=== PATIENT | male | born 1940 | race Two or more races ===

== ENCOUNTER 2017-12-29 10:08 | Inpatient (IN) ==
[2017-12-29] MEDS: Sod Chloride 0.9% Inj 1,000 ML IV.CONT SCH (10:11)
[2017-12-29 10:29] LABS: Baso % (Auto) 0.3 % (0.0-2.0); Eos # (Auto) 0.1 th/mm3 (0.0-0.4); Eos % (Auto) 1.4 % (0.0-4.0); Hematocrit 40.6 % (39.0-51.0); Hemoglobin 13.7 gm/dL (13.0-17.0); Lymph # (Auto) 1.3 th/mm3 (1.0-4.8); Mean Corpuscular HGB Conc 33.8 % (32.0-36.0); Mean Corpuscular Hemoglobin 32.3 pg (27.0-34.0); Mean Corpuscular Volume 95.5 fL (80.0-100.0); Mean Platelet Volume 8.3 fL (7.0-11.0); Mono # (Auto) 0.8 th/mm3 (0.0-0.9); Mono % (Auto) 10.8 % (0.0-8.0); Neut # (Auto) 5.1 th/mm3 (1.8-7.7); Neut % (Auto) 69.5 % (16.0-70.0); Platelet Count 137 th/mm3 (150-450); Red Blood Count 4.25 mil/mm3 (4.50-5.90); Red Cell Distribution Width 14.2 % (11.6-17.2); White Blood Count 7.3 th/mm3 (4.0-11.0)
--- NOTE | 2017-12-29 10:30 | ED ---
HPI General Chief Complaint: Stroke Alert Stated Complaint: Stroke Alert Time Seen by Provider: 12/29/17 10:15 Source: patient and EMS Mode of arrival: EMS Limitations: altered mental status History of Present Illness HPI Narrative: 78-year-old male was brought in by EMS for altered mental status , aphasia, left sided weakness. Family member called EMS this morning. Family member reported to EMS that patient is not speaking and seems to have left- sided weakness. Family member unable to provide approximately time the symptoms started. EMS reported was called to the home yesterday for hypotension. Patient refused treatment yesterday. Patient is unable to provide any information. No past medical history available. No list of medication available. No allergy available. Onset (ago): hour(s) Timing confirmed by: family member Location: speech, left arm and left leg History of same: No Severity: moderate Quality: weak Relieving factors: none Exacerbating factors: none Context: other (Unknown time of onset) Associated symptoms: weakness Treatments Prior to Arrival: oxygen Related Data Home Medications Medication Instructions Recorded Confirmed amlodipine-benazepril 1 cap PO DAILY 12/29/17 12/29/17 citalopram 20 mg PO DAILY 12/29/17 12/29/17 tamsulosin 0.4 mg PO DAILY 12/29/17 12/29/17 Previous Rx's Medication Instructions Recorded aspirin 325 mg PO DAILY tab 12/31/17 atorvastatin 40 mg PO DAILY #30 tab 12/31/17 Allergies Allergy/AdvReac Type Severity Reaction Status Date / Time No Allergy Information Allergy Verified 12/29/17 10:16 Available Review of Systems ROS Unobtainable ROS Unobtainable: unobtainable due to mental condition PMFSH History History Provided By: Family Member and Roller Skater / EMT Social History Social History Substance History: Unable to Obtain Smoking Status: Unknown if ever smoked How Often Do You Have a Drink Containing Alcohol: Unable to Obtain Recent Travel in [place] within the Last 8 Weeks: No Recent Out of Country Travel within the Last 8 Weeks: No Exam Narrative Exam Narrative: GENERAL: Well-nourished, well-developed patient. SKIN: Focused skin assessment warm/dry. HEAD: Normocephalic. EYES: No scleral icterus. No injection or drainage. Pupils 1.5 mm equal reactive NECK: Supple, trachea midline. No JVD or lymphadenopathy. CARDIOVASCULAR: Regular rate and rhythm without murmurs, gallops, or rubs. RESPIRATORY: Breath sounds equal bilaterally. No accessory muscle use. GASTROINTESTINAL: Abdomen soft, non-tender, nondistended. MUSCULOSKELETAL: No cyanosis, or edema. BACK: Nontender without obvious deformity. No CVA tenderness. Neurologic exam: Patient open eyes to command. Patient moves extremities to command. Patient seemed to have weakness on the left arm and left leg. Patient can move left arm left leg however seem to be weaker than the right side. No obvious facial drooping. Patient's aphasic. Deep tendon reflexes +1 and equal. Negative Babinski. Course Initial Documented Vital Signs Pulse Oximetry 100 12/29/17 10:10 Last Documented Vital Signs Temperature 97.9 F 01/02/18 16:00 Pulse Rate 72 01/02/18 16:00 Respiratory Rate 17 01/02/18 16:00 Blood Pressure 155/72 H 01/02/18 16:00 Pulse Oximetry 98 01/02/18 16:00 NIH Stroke Scale NIH Stroke Scale Level of Consciousness: 1-Drowsy Orientation Questions: 1-One task correct Responds to Commands: 1-One task correct Gaze Eye Movement: 0-Horizontal movement WNL Visual Simpson: 0-No visual field defect Facial Movement: 2-Partial facial palsy Motor Functions Arm LEFT: 1-Drift before 10 seconds Motor Functions Arm RIGHT: 0-No drift Motor Functions Leg LEFT: 1-Drift before 5 seconds Motor Functions Leg RIGHT: 0-No drift Limb Ataxia: 0-No ataxia Sensory Loss: 0-No sensory loss Best Language: 1-Mild aphasia Articulation: 1-Mild dysarthia Extinction or Inattention Sensory: 0-Absent Total: 9 Medical Decision Making [facility] Narrative Medical decision making narrative: 78-year-old male was brought in with symptoms of aphasia, left-sided weakness. Unknown time of onset. Stroke alert was called. Normal saline solution 70 cc an hour. O2 2 L nasal cannula. Head of bed flat. CT scan of the brain show significant edema throughout the basal ganglia on the right side along with the right medial lobe and right temporal lobe. I spoke with Dr. Díaz, neurologist. Patient is not a candidate for TPA. Medical Screen Exam Complete: Yes Emergency Medical Condition: Yes Differential Diagnosis Differential Diagnosis: Differential diagnosis including TIA, CVA, electrolyte imbalance, dehydration, sepsis. Lab Data Result diagrams: 01/02/18 04:54 01/02/18 04:54 Lab Results 12/29/17 12/29/17 12/29/17 Range/Units 10:11 10:11 10:11 WBC 7.3 (4.0-11.0) th/mm3 Corrected WBC (4.0-11.0) th/mm3 RBC 4.25 L (4.50-5.90) mil/mm3 Hgb 13.7 (13.0-17.0) gm/dL POC Hgb (Calc) 13.6 (13.0-17.0) g/dL Hct 40.6 (39.0-51.0) % POC Hct 40.0 (39-51.0) % MCV 95.5 (80.0-100.0) fL MCH 32.3 (27.0-34.0) pg MCHC 33.8 (32.0-36.0) % RDW 14.2 (11.6-17.2) % Plt Count 137 L (150-450) th/mm3 MPV 8.3 (7.0-11.0) fL Prelim Diff (Auto) Neut % (Auto) 69.5 (16.0-70.0) % Lymph % (Auto) 18.0 (9.0-44.0) % [place] % (Auto) 10.8 H (0.0-8.0) % Eos % (Auto) 1.4 (0.0-4.0) % Baso % (Auto) 0.3 (0.0-2.0) % Neut # (Auto) 5.1 (1.8-7.7) th/mm3 Lymph # (Auto) 1.3 (1.0-4.8) th/mm3 [place] # (Auto) 0.8 (0.0-0.9) th/mm3 Eos # (Auto) 0.1 (0.0-0.4) th/mm3 Baso # (Auto) 0.0 (0.0-0.2) th/mm3 WBC Differential . Seg Neuts % (Manual) (16-70) % Lymphocytes % (Manual) (9-44) % Monocytes % (Manual) (0-8) % Eosinophils % (Manual) (0-4) % Abs Neuts (Manual) (1.8-7.7) th/mm3 Differential Comment Auto diff final Platelet Estimate (Normal) Platelet Morphology (Normal) PT 10.2 (9.8-11.6) sec INR 1.0 Ratio APTT 23.8 L (24.3-30.1) sec Fibrinogen 392 H (227-377) mg/dL POC Sodium 140 (137-144) mmol/L Sodium 141 (136-145) meq/L POC Potassium 3.9 (3.6-5.0) mmol/L Potassium 4.0 (3.5-5.1) meq/L POC Chloride 106 (102-111) mmol/L Chloride 109 H (98-107) meq/L Carbon Dioxide 23.8 (21.0-32.0) meq/L Anion Gap 8 (5-15) meq/L POC BUN 27 H (5-21) mg/dL BUN 25 H (7-18) mg/dL Creatinine 1.05 (0.60-1.30) mg/dL POC Creatinine 1.0 (0.6-1.3) mg/dL Estimated GFR 61 L (>89) mL/min POC Glucose 109 (68-110) mg/dL Random Glucose 106 (74-106) mg/dL Calcium 8.8 (8.5-10.1) mg/dL Prot Corrected Calcium Phosphorus (2.5-4.9) mg/dL Magnesium (1.5-2.5) mg/dL Total Bilirubin 0.3 (0.2-1.0) mg/dL AST 18 (15-37) U/L ALT 14 (12-78) U/L Alkaline Phosphatase 62 (45-117) U/L Total Creatine Kinase 70 (39-308) U/L Troponin I Less than 0.02 L (0.02-0.05) ng/mL Total Protein 7.2 (6.4-8.2) g/dL Albumin 3.6 (3.4-5.0) g/dL Triglycerides (42-150) mg/dL Cholesterol (120-200) mg/dL LDL Cholesterol, Calc (0-99) mg/dL HDL Cholesterol (40.0-60.0) mg/dL Cholesterol/HDL Ratio Ratio Vitamin B12 (193-986) pg/mL TSH (0.358-3.740) uIU/mL Nasal Screen MRSA (PCR) (Negative) 12/29/17 12/29/17 12/30/17 Range/Units 10:11 18:40 04:37 WBC 6.1 (4.0-11.0) th/mm3 Corrected WBC (4.0-11.0) th/mm3 RBC 4.12 L (4.50-5.90) mil/mm3 Hgb 13.1 (13.0-17.0) gm/dL POC Hgb (Calc) (13.0-17.0) g/dL Hct 38.9 L (39.0-51.0) % POC Hct (39-51.0) % MCV 94.3 (80.0-100.0) fL MCH 31.9 (27.0-34.0) pg MCHC 33.8 (32.0-36.0) % RDW 13.8 (11.6-17.2) % Plt Count 138 L (150-450) th/mm3 MPV 8.4 (7.0-11.0) fL Prelim Diff (Auto) Neut % (Auto) 55.6 (16.0-70.0) % Lymph % (Auto) 31.7 (9.0-44.0) % [place] % (Auto) 8.3 H (0.0-8.0) % Eos % (Auto) 3.9 (0.0-4.0) % Baso % (Auto) 0.5 (0.0-2.0) % Neut # (Auto) 3.4 (1.8-7.7) th/mm3 Lymph # (Auto) 1.9 (1.0-4.8) th/mm3 [place] # (Auto) 0.5 (0.0-0.9) th/mm3 Eos # (Auto) 0.2 (0.0-0.4) th/mm3 Baso # (Auto) 0.0 (0.0-0.2) th/mm3 WBC Differential . Seg Neuts % (Manual) (16-70) % Lymphocytes % (Manual) (9-44) % Monocytes % (Manual) (0-8) % Eosinophils % (Manual) (0-4) % Abs Neuts (Manual) (1.8-7.7) th/mm3 Differential Comment Auto diff final Platelet Estimate (Normal) Platelet Morphology (Normal) PT (9.8-11.6) sec INR Ratio APTT (24.3-30.1) sec Fibrinogen (227-377) mg/dL POC Sodium (137-144) mmol/L Sodium Cancelled (136-145) meq/L POC Potassium (3.6-5.0) mmol/L Potassium Cancelled (3.5-5.1) meq/L POC Chloride (102-111) mmol/L Chloride Cancelled (98-107) meq/L Carbon Dioxide Cancelled (21.0-32.0) meq/L Anion Gap Cancelled (5-15) meq/L POC BUN (5-21) mg/dL BUN Cancelled (7-18) mg/dL Creatinine Cancelled (0.60-1.30) mg/dL POC Creatinine (0.6-1.3) mg/dL Estimated GFR Cancelled (>89) mL/min POC Glucose (68-110) mg/dL Random Glucose Cancelled (74-106) mg/dL Calcium Cancelled (8.5-10.1) mg/dL Prot Corrected Calcium Cancelled Phosphorus (2.5-4.9) mg/dL Magnesium (1.5-2.5) mg/dL Total Bilirubin Cancelled (0.2-1.0) mg/dL AST Cancelled (15-37) U/L ALT Cancelled (12-78) U/L Alkaline Phosphatase Cancelled (45-117) U/L Total Creatine Kinase (39-308) U/L Troponin I (0.02-0.05) ng/mL Total Protein Cancelled (6.4-8.2) g/dL Albumin Cancelled (3.4-5.0) g/dL Triglycerides (42-150) mg/dL Cholesterol (120-200) mg/dL LDL Cholesterol, Calc (0-99) mg/dL HDL Cholesterol (40.0-60.0) mg/dL Cholesterol/HDL Ratio Ratio Vitamin B12 (193-986) pg/mL TSH (0.358-3.740) uIU/mL Nasal Screen MRSA (PCR) Not detected (Negative) 12/30/17 12/30/17 12/30/17 Range/Units 04:37 04:37 12:56 WBC (4.0-11.0) th/mm3 Corrected WBC (4.0-11.0) th/mm3 RBC (4.50-5.90) mil/mm3 Hgb (13.0-17.0) gm/dL POC Hgb (Calc) (13.0-17.0) g/dL Hct (39.0-51.0) % POC Hct (39-51.0) % MCV (80.0-100.0) fL MCH (27.0-34.0) pg MCHC (32.0-36.0) % RDW (11.6-17.2) % Plt Count (150-450) th/mm3 MPV (7.0-11.0) fL Prelim Diff (Auto) Neut % (Auto) (16.0-70.0) % Lymph % (Auto) (9.0-44.0) % [place] % (Auto) (0.0-8.0) % Eos % (Auto) (0.0-4.0) % Baso % (Auto) (0.0-2.0) % Neut # (Auto) (1.8-7.7) th/mm3 Lymph # (Auto) (1.0-4.8) th/mm3 [place] # (Auto) (0.0-0.9) th/mm3 Eos # (Auto) (0.0-0.4) th/mm3 Baso # (Auto) (0.0-0.2) th/mm3 WBC Differential Seg Neuts % (Manual) (16-70) % Lymphocytes % (Manual) (9-44) % Monocytes % (Manual) (0-8) % Eosinophils % (Manual) (0-4) % Abs Neuts (Manual) (1.8-7.7) th/mm3 Differential Comment Platelet Estimate (Normal) Platelet Morphology (Normal) PT 10.5 (9.8-11.6) sec INR 1.0 Ratio APTT 25.1 (24.3-30.1) sec Fibrinogen (227-377) mg/dL POC Sodium (137-144) mmol/L Sodium (136-145) meq/L POC Potassium (3.6-5.0) mmol/L Potassium (3.5-5.1) meq/L POC Chloride (102-111) mmol/L Chloride (98-107) meq/L Carbon Dioxide (21.0-32.0) meq/L Anion Gap (5-15) meq/L POC BUN (5-21) mg/dL BUN (7-18) mg/dL Creatinine (0.60-1.30) mg/dL POC Creatinine (0.6-1.3) mg/dL Estimated GFR (>89) mL/min POC Glucose (68-110) mg/dL Random Glucose (74-106) mg/dL Calcium (8.5-10.1) mg/dL Prot Corrected Calcium Phosphorus 2.5 (2.5-4.9) mg/dL Magnesium 1.8 (1.5-2.5) mg/dL Total Bilirubin (0.2-1.0) mg/dL AST (15-37) U/L ALT (12-78) U/L Alkaline Phosphatase (45-117) U/L Total Creatine Kinase (39-308) U/L Troponin I (0.02-0.05) ng/mL Total Protein (6.4-8.2) g/dL Albumin (3.4-5.0) g/dL Triglycerides 83 (42-150) mg/dL Cholesterol 178 (120-200) mg/dL LDL Cholesterol, Calc 119 H (0-99) mg/dL HDL Cholesterol 42.4 (40.0-60.0) mg/dL Cholesterol/HDL Ratio 4.19 Ratio Vitamin B12 613 (193-986) pg/mL TSH 0.815 (0.358-3.740) uIU/mL Nasal Screen MRSA (PCR) (Negative) 12/31/17 12/31/17 01/01/18 Range/Units 04:16 04:16 06:15 WBC 6.9 5.4 (4.0-11.0) th/mm3 Corrected WBC 7.5 (4.0-11.0) th/mm3 RBC 4.45 L 4.60 (4.50-5.90) mil/mm3 Hgb 14.1 14.7 (13.0-17.0) gm/dL POC Hgb (Calc) (13.0-17.0) g/dL Hct 43.2 43.1 (39.0-51.0) % POC Hct (39-51.0) % MCV 97.2 93.7 D (80.0-100.0) fL MCH 31.6 32.0 (27.0-34.0) pg MCHC 32.5 34.2 (32.0-36.0) % RDW 13.9 13.7 (11.6-17.2) % Plt Count 145 L 139 L (150-450) th/mm3 MPV 8.5 8.2 (7.0-11.0) fL Prelim Diff (Auto) Manual diff required Neut % (Auto) 45.4 (16.0-70.0) % Lymph % (Auto) 39.1 (9.0-44.0) % [place] % (Auto) 9.9 H (0.0-8.0) % Eos % (Auto) 5.0 H (0.0-4.0) % Baso % (Auto) 0.6 (0.0-2.0) % Neut # (Auto) 2.5 (1.8-7.7) th/mm3 Lymph # (Auto) 2.1 (1.0-4.8) th/mm3 [place] # (Auto) 0.5 (0.0-0.9) th/mm3 Eos # (Auto) 0.3 (0.0-0.4) th/mm3 Baso # (Auto) 0.0 (0.0-0.2) th/mm3 WBC Differential Manual diff final . Seg Neuts % (Manual) 38 (16-70) % Lymphocytes % (Manual) 54 H (9-44) % Monocytes % (Manual) 6 (0-8) % Eosinophils % (Manual) 2 (0-4) % Abs Neuts (Manual) 2.9 (1.8-7.7) th/mm3 Differential Comment . Auto diff final Platelet Estimate Low L (Normal) Platelet Morphology Normal (Normal) PT (9.8-11.6) sec INR Ratio APTT (24.3-30.1) sec Fibrinogen (227-377) mg/dL POC Sodium (137-144) mmol/L Sodium 142 (136-145) meq/L POC Potassium (3.6-5.0) mmol/L Potassium 3.9 (3.5-5.1) meq/L POC Chloride (102-111) mmol/L Chloride 110 H (98-107) meq/L Carbon Dioxide 23.2 (21.0-32.0) meq/L Anion Gap 9 (5-15) meq/L POC BUN (5-21) mg/dL BUN 17 (7-18) mg/dL Creatinine 0.87 (0.60-1.30) mg/dL POC Creatinine (0.6-1.3) mg/dL Estimated GFR 76 L (>89) mL/min POC Glucose (68-110) mg/dL Random Glucose 79 (74-106) mg/dL Calcium 8.3 L (8.5-10.1) mg/dL Prot Corrected Calcium Phosphorus (2.5-4.9) mg/dL Magnesium (1.5-2.5) mg/dL Total Bilirubin 0.5 (0.2-1.0) mg/dL AST 14 L (15-37) U/L ALT 11 L (12-78) U/L Alkaline Phosphatase 61 (45-117) U/L Total Creatine Kinase (39-308) U/L Troponin I (0.02-0.05) ng/mL Total Protein 6.7 (6.4-8.2) g/dL Albumin 3.1 L (3.4-5.0) g/dL Triglycerides (42-150) mg/dL Cholesterol (120-200) mg/dL LDL Cholesterol, Calc (0-99) mg/dL HDL Cholesterol (40.0-60.0) mg/dL Cholesterol/HDL Ratio Ratio Vitamin B12 (193-986) pg/mL TSH (0.358-3.740) uIU/mL Nasal Screen MRSA (PCR) (Negative) 01/01/18 01/02/18 01/02/18 Range/Units 06:15 04:54 04:54 WBC 5.4 (4.0-11.0) th/mm3 Corrected WBC (4.0-11.0) th/mm3 RBC 4.55 (4.50-5.90) mil/mm3 Hgb 14.5 (13.0-17.0) gm/dL POC Hgb (Calc) (13.0-17.0) g/dL Hct 43.6 (39.0-51.0) % POC Hct (39-51.0) % MCV 95.9 (80.0-100.0) fL MCH 32.0 (27.0-34.0) pg MCHC 33.3 (32.0-36.0) % RDW 13.7 (11.6-17.2) % Plt Count 145 L (150-450) th/mm3 MPV 8.0 (7.0-11.0) fL Prelim Diff (Auto) Neut % (Auto) 48.7 (16.0-70.0) % Lymph % (Auto) 34.9 (9.0-44.0) % [place] % (Auto) 9.6 H (0.0-8.0) % Eos % (Auto) 6.2 H (0.0-4.0) % Baso % (Auto) 0.6 (0.0-2.0) % Neut # (Auto) 2.6 (1.8-7.7) th/mm3 Lymph # (Auto) 1.9 (1.0-4.8) th/mm3 [place] # (Auto) 0.5 (0.0-0.9) th/mm3 Eos # (Auto) 0.3 (0.0-0.4) th/mm3 Baso # (Auto) 0.0 (0.0-0.2) th/mm3 WBC Differential . Seg Neuts % (Manual) (16-70) % Lymphocytes % (Manual) (9-44) % Monocytes % (Manual) (0-8) % Eosinophils % (Manual) (0-4) % Abs Neuts (Manual) (1.8-7.7) th/mm3 Differential Comment Auto diff final Platelet Estimate (Normal) Platelet Morphology (Normal) PT (9.8-11.6) sec INR Ratio APTT (24.3-30.1) sec Fibrinogen (227-377) mg/dL POC Sodium (137-144) mmol/L Sodium 140 141 (136-145) meq/L POC Potassium (3.6-5.0) mmol/L Potassium 4.0 4.0 (3.5-5.1) meq/L POC Chloride (102-111) mmol/L Chloride 106 107 (98-107) meq/L Carbon Dioxide 26.3 25.7 (21.0-32.0) meq/L Anion Gap 8 8 (5-15) meq/L POC BUN (5-21) mg/dL BUN 15 15 (7-18) mg/dL Creatinine 0.98 0.95 (0.60-1.30) mg/dL POC Creatinine (0.6-1.3) mg/dL Estimated GFR 74 L 76 L (>89) mL/min POC Glucose (68-110) mg/dL Random Glucose 87 89 (74-106) mg/dL Calcium 8.7 9.1 (8.5-10.1) mg/dL Prot Corrected Calcium Phosphorus (2.5-4.9) mg/dL Magnesium (1.5-2.5) mg/dL Total Bilirubin 0.5 0.4 (0.2-1.0) mg/dL AST 16 13 L (15-37) U/L ALT 13 13 (12-78) U/L Alkaline Phosphatase 67 60 (45-117) U/L Total Creatine Kinase (39-308) U/L Troponin I (0.02-0.05) ng/mL Total Protein 7.3 D 7.0 (6.4-8.2) g/dL Albumin 3.4 3.3 L (3.4-5.0) g/dL Triglycerides (42-150) mg/dL Cholesterol (120-200) mg/dL LDL Cholesterol, Calc (0-99) mg/dL HDL Cholesterol (40.0-60.0) mg/dL Cholesterol/HDL Ratio Ratio Vitamin B12 (193-986) pg/mL TSH (0.358-3.740) uIU/mL Nasal Screen MRSA (PCR) (Negative) Imaging Data Radiologist's impression: Chest X-Ray 12/29/17 10:16 CONCLUSION: Negative examination. Head CT 12/29/17 10:16 CONCLUSION: 1. There is already significant edema throughout the right basal ganglia and the right temporal lobe both medially and posteriorly. No evidence of active hemorrhage. Report was called by [ Dr. Bosch to Dr. Gagnon at 10:30 AM hours] Head CTA 12/29/17 10:16 CONCLUSION: 1. 1.3 cm filling defect involving the right middle cerebral artery. 2. 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 Negative CTA Carotid. Head MRI 12/29/17 10:37 CONCLUSION: 1. No evidence of metastatic disease. 2. Large area of acute infarct involving the right basal ganglia, insula, portions of the right temporal lobe and right parietal lobe. There is mild sulcal effacement identified within this area. No evidence of significant mass effect or midline shift. No hemorrhagic transformation is seen. Head MRA 12/29/17 10:37 CONCLUSION: 1. Lack of visualization of the right middle cerebral artery corresponding with a large area of infarct seen on comparison brain MRI involving the right insula, basal ganglia and temporal lobe/parietal lobe. Neck MRA 12/29/17 10:37 CONCLUSION: 1. Negative MRA Carotids. 2. Segment of nonvisualization of the right middle cerebral artery. Percent stenosis is calculated using the diameter of the stenotic region over the diameter of the normal distal internal carotid artery Head CT 12/31/17 00:00 CONCLUSION: 1. Evolving right MCA distribution infarct. Mild localized mass effect. No midline shift. . Discharge Plan Discharge Disposition Patient Disposition: 03 Discharge to SNF Discharge Condition Condition: Stable Discharge Order Discharge Orders: Discharge Order (Routine); Ordered 12/31/17 Ordered By: Jama Disla Physicians Team ED Provider: Ángel Gagnon Primary Care Provider: UNKNOWN, Attending Provider: Jama Disla Other Providers: Lilo Díaz ; Gabriela Sher ; Jaqueline,Jaqueline ; [facility],Agency Status ED Status: Left Department Discharge Information Discharge Date/Time: 12/29/17 14:00
--- NOTE | 2017-12-29 10:31 | CT ---
EXAM DATE: 12/29/2017 10:25 AM EDT AGE/SEX: 89 years / Male INDICATIONS: [place] alert, altered mental status, left sided weakness. CLINICAL DATA: This is the patient's initial encounter. Patient reports that signs and symptoms have been present for 1 day and indicates a pain score of Nonresponsive. MEDICAL/SURGICAL HISTORY: Non-responsive. Non-responsive. RADIATION DOSE: 56.35 CTDI (mGy) COMPARISON: No prior exams available for comparison. TECHNIQUE: CT of the head without contrast. Using automated exposure control and adjustment of the mA and/or kV according to patient size, radiation dose was kept as low as reasonably achievable to ob tain optimal diagnostic quality images. DICOM format image data is available electronically for revi ew and comparison. FINDINGS: Cerebrum: There is significant edema throughout the basal ganglia and the medial right temporal lobe . There is no significant hemorrhage. There are some additional edema in the more posterior right tem poral lobe Posterior Fossa: The cerebellum and brainstem are intact. The 4th ventricle is midline. The cerebe llopontine angle is unremarkable. Extracranial: The visualized portion of the orbits is intact. Skull: The calvaria is intact. No evidence of skull fracture. CONCLUSION: 1. There is already significant edema throughout the right basal ganglia and the right temporal lobe both medially and posteriorly. No evidence of active hemorrhage. Report was called by [ Dr. Bosch to Dr. Gagnon at 10:30 AM hours] Electronically signed by: Abilio Bosch MD 12/29/2017 10:30 AM EDT
[2017-12-29 10:38] LABS: Activated Partial Thrombo Time 23.8 sec (24.3-30.1); Prothrombin Time 10.2 sec (9.8-11.6)
[2017-12-29 10:44] LABS: Anion Gap 8 meq/L (5-15); Blood Urea Nitrogen 25 mg/dL (7-18); Calcium 8.8 mg/dL (8.5-10.1); Carbon Dioxide 23.8 meq/L (21.0-32.0); Chloride 109 meq/L (98-107); Glomerular Filtration Rate 61 mL/min (>89); Glucose,Random 106 mg/dL (74-106); Sodium 141 meq/L (136-145)
--- NOTE | 2017-12-29 10:47 | CT ---
EXAM DATE: 12/29/2017 10:39 AM EDT AGE/SEX: 89 years / Male INDICATIONS: Stroke alert, left sided weakness. CLINICAL DATA: This is the patient's initial encounter. Patient reports that signs and symptoms have been present for 1 day and indicates a pain score of Nonresponsive. MEDICAL/SURGICAL HISTORY: Non-responsive. Non-responsive. RADIATION DOSE: 10.72 CTDI (mGy) ; Combined studies COMPARISON: [facility] [place]/O [place]AST, 12/29/2017. . TECHNIQUE: Volumetric scanning was performed using a multi-row detector CT scanner during bolus infu fernando of 100 ml Visipaque 320 (iodixanol) nonionic water-soluble contrast as a cumulative dose for mu ltiple exams. The data was post processed with a variety of visualization algorithms including full volume maximum intensity projection, multi-planar sliding thin slab reformation, curved planar refor mation, and surface rendering techniques. Using automated exposure control and adjustment of the mA and/or kV according to patient size, radiation dose was kept as low as reasonably achievable to obtai n optimal diagnostic quality images. DICOM format image data is available electronically for review and comparison. FINDINGS: There is a 1.3 cm abrupt cut off filling defect involving the middle cerebral artery on the right. Th ere is diffusely LESS flow on the right compared to the left. The intracerebral circulations unremarkable. The basilar artery circulations unremarkable with some n arrowing involving both of the distal vertebral arteries. CONCLUSION: 1. 1.3 cm filling defect involving the right middle cerebral artery. 2. 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
--- NOTE | 2017-12-29 10:53 | XR ---
EXAM DATE: 12/29/2017 10:50 AM EDT AGE/SEX: 89 years / Male INDICATIONS: Stroke Alert CLINICAL DATA: This is the patient's initial encounter. Patient reports that signs and symptoms have been present for 1 day and indicates a pain score of Nonresponsive. MEDICAL/SURGICAL HISTORY: Non-responsive. Non-responsive. COMPARISON: No prior exams available for comparison. FINDINGS: A single AP view of the chest demonstrates the lungs to be symmetrically aerated without evidence of mass, infiltrate or effusion. The cardiomediastinal contours are unremarkable. Osseous structures a re intact. CONCLUSION: Negative examination. Electronically signed by: Abilio Bosch MD 12/29/2017 10:51 AM EDT
[2017-12-29 11:05] LABS: Creatine Kinase 70 U/L (39-308)
--- NOTE | 2017-12-29 11:08 | CT ---
EXAM DATE: 12/29/2017 10:52 AM EDT AGE/SEX: 89 years / Male INDICATIONS: Stroke alert, left sided weakness. CLINICAL DATA: This is the patient's initial encounter. Patient reports that signs and symptoms have been present for 1 day and indicates a pain score of Nonresponsive. MEDICAL/SURGICAL HISTORY: Non-responsive. Non-responsive. RADIATION DOSE: 10.72 CTDI (mGy) ; Combined studies COMPARISON: No prior exams available for comparison. TECHNIQUE: Volumetric scanning was performed using a multirow detector CT scanner during bolus infus ion of 100 ml Visipaque 320 (iodixanol) nonionic water-soluble contrast as a cumulative dose for mul tiple exams. The data was postprocessed with a variety of visualization algorithms including full-v olume maximum intensity projection, multiplanar sliding thin-slab reformation, curved-planar reformat ion, and surface-rendering techniques. Using automated exposure control and adjustment of the mA and /or kV according to patient size, radiation dose was kept as low as reasonably achievable to obtain o ptimal diagnostic quality images. DICOM format image data is available electronically for review and comparison. FINDINGS: Aortic Arch: There is a three-vessel origin of the great vessels from the aorta. No evidence of ost ial narrowing Right Carotid: The common carotid artery is intact. The carotid bulb has a normal configuration wit hout ulceration or narrowing. The internal carotid artery lumen is smooth without stenosis. The ext ernal carotid artery is intact. Left Carotid: The common carotid artery is intact. The carotid bulb has a normal configuration with out ulceration or narrowing. The internal carotid artery lumen is smooth without stenosis. The exte rnal carotid artery is intact. Vertebrals: The vertebral arteries have a symmetric diameter. No stenotic lesions are seen. Percent stenosis is calculated using the diameter of the stenotic region over the diameter of the nor mal distal internal carotid artery. CONCLUSION: 1. Negative CTA Carotid. Electronically signed by: Abilio Bosch MD 12/29/2017 11:07 AM EDT
[2017-12-29] MEDS ORDERED: Acetaminophen 325 MG Tablet PO PRN (11:48)
[2017-12-29] MEDS ORDERED: Bisacodyl 10 MG Supp RECTAL PRN (11:48)
[2017-12-29 13:07] LABS: Alkaline Phosphatase 62 U/L (45-117); Total Protein 7.2 g/dL (6.4-8.2)
[2017-12-29 13:22] LABS: Alanine Aminotransferase 14 U/L (12-78); Albumin 3.6 g/dL (3.4-5.0); Aspartate Aminotransferase 18 U/L (15-37)
--- NOTE | 2017-12-29 14:12 | MR ---
EXAM DATE: 12/29/2017 2:02 PM EDT AGE/SEX: 89 years / Male INDICATIONS: Left sided weakness. Left facial droop. CLINICAL DATA: This is the patient's initial encounter. Patient reports that signs and symptoms have been present for 1 day and indicates a pain score of 0/10. MEDICAL/SURGICAL HISTORY: Carcinoma, colon. Colon resection. COMPARISON: [facility] [place], MR HEAD W & W/O CONTRAST, 12/29/2017. [facility] [place], CTA HEAD W CONTRAST W 3D, 12/29/2017. . TECHNIQUE: 3D [id number] MRA was performed. Source images, multiplanar STS MIP, and 3D volum e MIP reconstructions were reviewed. FINDINGS: There is nonvisualization of the right middle cerebral artery corresponding with a large area of infa rct involving the right basal ganglia, insula and temporal lobe and parietal lobe seen on comparison MRI of the head. The remainder of the cerebral vessels demonstrate normal flow without abnormal aneur ysmal dilation or truncation. CONCLUSION: 1. Lack of visualization of the right middle cerebral artery corresponding with a large area of infa rct seen on comparison brain MRI involving the right insula, basal ganglia and temporal lobe/parietal lobe. Electronically signed by: Sydney Dahl MD 12/29/2017 2:10 PM EDT
--- NOTE | 2017-12-29 14:15 | MR ---
EXAM DATE: 12/29/2017 2:02 PM EDT AGE/SEX: 89 years / Male INDICATIONS: Stroke. CLINICAL DATA: This is the patient's initial encounter. Patient reports that signs and symptoms have been present for 1 day and indicates a pain score of 0/10. MEDICAL/SURGICAL HISTORY: Carcinoma, colon. Colon resection. COMPARISON: [facility] [place], CTA NECK W CONTRAST W 3D, 12/29/2017. [facility] [place], MRA HEAD W/O CONTRAST, 12/29/2017. . TECHNIQUE: 10cc ml Gadavist (gadobutrol) contrast infused MRA (single exam dose) of the extracrania l circulation was performed using a neurovascular coil. Postprocessing was performed, including rota ting sub-volume maximum intensity projections of each carotid artery, rotating full-volume maximum in tensity projections of both carotid arteries, sagittal and coronal sliding thin-slab reformations of each carotid artery, and left oblique sliding thin-slab reformation through the aortic arch to includ e the origin of the arch branch vessels. FINDINGS: Aortic Arch : There is a three-vessel origin of the great vessels from the aorta. No evidence of o stial narrowing. Right Carotid : The common carotid artery is intact. The carotid bulb has a normal configuration wi thout ulceration or narrowing. The internal carotid artery lumen is smooth without stenosis. The ex ternal carotid artery is intact. Left Carotid : The common carotid artery is intact. The carotid bulb has a normal configuration wit hout ulceration or narrowing. The internal carotid artery lumen is smooth without stenosis. The ext ernal carotid artery is intact. Vertebrals : The vertebral arteries have a symmetric diameter. No stenotic lesions are seen. Volumetric imaging of the vascular structures demonstrate a segment of nonvisualization of the right middle cerebral artery seen on comparison MRI of the brain. CONCLUSION: 1. Negative MRA Carotids. 2. Segment of nonvisualization of the right middle cerebral artery. Percent stenosis is calculated using the diameter of the stenotic region over the diameter of the nor mal distal internal carotid artery Electronically signed by: Sydney Dahl MD 12/29/2017 2:14 CHAT
[2017-12-29] MEDS ORDERED: Gadobutrol PF 10 MMOL/10 ML Vial (for RAD) IV.SIG ONE (14:16)
--- NOTE | 2017-12-29 14:22 | MR ---
EXAM DATE: 12/29/2017 2:02 PM EDT AGE/SEX: 89 years / Male INDICATIONS: Left sided weakness. Left facial droop. CLINICAL DATA: This is the patient's initial encounter. Patient reports that signs and symptoms have been present for 1 day and indicates a pain score of 0/10. MEDICAL/SURGICAL HISTORY: Carcinoma, colon. Colon resection. COMPARISON: [facility], MRA HEAD W/O CONTRAST, 12/29/2017. [facility], CTA HEAD W CONTRAST W 3D, 12/29/2017. . TECHNIQUE: Multiplanar, multisequence examination of the brain was performed without and with 10cc ml Gadavist (gadobutrol) contrast as a single exam dose. FINDINGS: Cerebrum: The ventricles are normal. There is minimal sulcal effacement identified along the right t emporal lobe and insula. White Matter: Patchy bilateral periventricular white matter hyperintensity as well as more focal whi te matter hyperintensity involving the insula, right temporal lobe and portions of the parietal lobe. There is abnormal increased T2 signal identified within the right caudate and putamen. Posterior Fossa: The cerebellum and brainstem are intact. The 4th ventricle is midline. The cerebel lopontine angle is unremarkable. The cerebellar tonsils are normal in position. Diffusion Imaging: There is a large area of restricted diffusion involving the right basal ganglia, caudate and putamen, the right insula right temporal lobe and portions of the right parietal lobe. Th monse correspond with areas of slight decreased signal on T1-weighted sequences and increased signal on the T2-weighted sequences. Extracranial: The visualized portions of the orbits and paranasal sinuses are unremarkable. Post Contrast: No abnormal areas of parenchymal or dural enhancement. No evidence of blood-brain ba rrier breakdown. CONCLUSION: 1. No evidence of metastatic disease. 2. Large area of acute infarct involving the right basal ganglia, insula, portions of the right temp oral lobe and right parietal lobe. There is mild sulcal effacement identified within this area. No ev idence of significant mass effect or midline shift. No hemorrhagic transformation is seen. Electronically signed by: Sydney Dahl MD 12/29/2017 2:21 PM EDT
--- NOTE | 2017-12-29 16:57 | P.HPCC ---
History of Present Illness Primary Care Physician: UNKNOWN Chief Complaint: left sided weakness History of Present Illness: HPI Narrative: 78-year-old male was brought in by EMS for altered mental status , aphasia, left sided weakness. Family member called EMS this morning. Family member reported to EMS that patient is not speaking and seems to have left- sided weakness. Family member unable to provide approximately time the symptoms started. EMS reported was called to the home yesterday for hypotension. Patient refused treatment yesterday. Patient is unable to provide any information. No past medical history available. No list of medication available. No allergy available. Head CT done in the ER showed right MCA territory infarct with cerebral edema. Patient was evaluated by neurology. I accepted patient for admission to critical care medicine service and evaluated him in the ER earlier. At that time he was laying in the ER stretcher easily arousable on command with left-sided weakness. He did not appear to be any acute distress and was protecting his airway adequately at the time. He reportedly had a seizure yesterday. Inpatient Certification: I certify that the inpatient services were ordered in accordance with Medicare regulations governing the order. This includes certification that hospital inpatient services are reasonable and necessary and in the case of services not specified as inpatient-only under 42 CFR 419.22(n), that they are appropriately provided as inpatient services in accordance to with the 2-midnight benchmark under 43 CFR 412.3(e) Estimated Total Length of Stay (Days): 5 Plans for Post Hospital Care: Other acute care hospital Review of Systems unobtainable due to mental status PMFSH - History History Provided By: Family Member, Central Office Worker / EMT - Medical History Medical History: Medical History (Last Reviewed 12/29/17 @ 13:44 by Amy Doshi) Medical history unknown Surgical history unknown - Tobacco History Smoking Status: Unknown if ever smoked - Alcohol History How Often Do You Have a Drink Containing Alcohol: Unable to Obtain - Substance Use History Substance History: Unable to Obtain - Travel History Recent Travel in the [place] Within the Last 8 Weeks: No Recent Travel Out of the Country Within the Last 8 Weeks: No - Immunization History Tetanus Immunization: Unable to Assess Medications and Allergies Active Medications: Active Medications Acetaminophen (Tylenol) 650 mg PO Q6H PRN PRN Reason: PAIN 1-10 AND/OR FEVER >101F Al Hydroxide/Mg Hydroxide (Milk Of Magnesia Liq) 30 ml PO Q12H PRN PRN Reason: Mild Constipation Albuterol (Duoneb Neb (Prn)) 1 ampul NEB Q2HR NEB PRN PRN Reason: WHEEZING Bisacodyl (Dulcolax Supp) 10 mg RECTAL DAILY PRN PRN Reason: SEVERE CONSITIPATION Chlorhexidine Gluconate (Chlorhexidine 2% Cloth) 3 pack TOPICAL DAILY@0400 ELLEN Stop: 01/04/18 03:59 Chlorhexidine Gluconate (Chlorhexidine 2% Cloth) 3 pack TOPICAL DAILY@0400 PRN PRN Reason: Extra cloth needed Stop: 01/04/18 03:59 Famotidine (Pepcid Pf Inj) 20 mg IV.PUSH Q12HR ELLEN Sodium Chloride (Ns Inj) 1,000 mls @ 70 mls/hr IV.CONT .[id number] ELLEN Last Admin: 12/29/17 10:11 Dose: 70 mls/hr Lactulose (Lactulose Liq) 30 ml PO DAILY PRN PRN Reason: SEVERE CONSITIPATION Senna/Docusate Sodium (Jaci-Colace) 1 tab PO BID [facility] Sennosides (Senokot) 17.2 mg PO Q12H PRN PRN Reason: Moderate Constipation Sodium Chloride (Ns Flush) 2 ml IV.FLUSH BID ELLEN Sodium Chloride (Ns Flush) 2 ml IV.FLUSH UNSCH PRN PRN Reason: FLUSH AFTER USING IV ACCESS Allergies Allergy/AdvReac Type Severity Reaction Status Date / Time No Allergy Information Allergy Verified 12/29/17 10:16 Available Home Medications Medication Instructions Recorded Confirmed Type Unable to Obtain Home Meds 12/29/17 12/29/17 History Results - Labs CBC & Chem 7: 12/29/17 10:11 12/29/17 10:11 Labs: Short CBC 12/29/17 Range/Units 10:11 WBC 7.3 (4.0-11.0) th/mm3 Hgb 13.7 (13.0-17.0) gm/dL Hct 40.6 (39.0-51.0) % Plt Count 137 L (150-450) th/mm3 BMP 12/29/17 12/29/17 10:11 10:11 Sodium 141 Cancelled Potassium 4.0 Cancelled Chloride 109 H Cancelled Carbon Dioxide 23.8 Cancelled BUN 25 H Cancelled Creatinine 1.05 Cancelled Calcium 8.8 Cancelled Cardiac Enzymes 12/29/17 Range/Units 10:11 Total Creatine Kinase 70 (39-308) U/L Troponin I Less than 0.02 L (0.02-0.05) ng/mL Liver Function 12/29/17 12/29/17 Range/Units 10:11 10:11 Total Bilirubin 0.3 Cancelled (0.2-1.0) mg/dL AST 18 Cancelled (15-37) U/L ALT 14 Cancelled (12-78) U/L Alkaline Phosphatase 62 Cancelled (45-117) U/L Albumin 3.6 Cancelled (3.4-5.0) g/dL - Imaging Impressions Chest X-Ray 12/29/17 10:16 CONCLUSION: Negative examination. Head CT 12/29/17 10:16 CONCLUSION: 1. There is already significant edema throughout the right basal ganglia and the right temporal lobe both medially and posteriorly. No evidence of active hemorrhage. Report was called by [ Dr. Bosch to Dr. Gagnon at 10:30 AM hours] Head CTA 12/29/17 10:16 CONCLUSION: 1. 1.3 cm filling defect involving the right middle cerebral artery. 2. 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 Negative CTA Carotid. Head MRI 12/29/17 10:37 CONCLUSION: 1. No evidence of metastatic disease. 2. Large area of acute infarct involving the right basal ganglia, insula, portions of the right temporal lobe and right parietal lobe. There is mild sulcal effacement identified within this area. No evidence of significant mass effect or midline shift. No hemorrhagic transformation is seen. Head MRA 12/29/17 10:37 CONCLUSION: 1. Lack of visualization of the right middle cerebral artery corresponding with a large area of infarct seen on comparison brain MRI involving the right insula, basal ganglia and temporal lobe/parietal lobe. Neck MRA 12/29/17 10:37 CONCLUSION: 1. Negative MRA Carotids. 2. Segment of nonvisualization of the right middle cerebral artery. Percent stenosis is calculated using the diameter of the stenotic region over the diameter of the normal distal internal carotid artery Exam Vital signs: Vital Signs 12/29/17 10:10 12/29/17 10:11 12/29/17 10:16 Temperature 98.1 F Pulse Rate 74 Respiratory Rate 18 Blood Pressure 179/84 H Pulse Oximetry 100 100 100 12/29/17 11:00 12/29/17 13:15 12/29/17 13:35 Temperature Pulse Rate 77 72 73 Respiratory Rate 20 19 18 Blood Pressure 169/77 H 160/90 H 152/74 H Pulse Oximetry 100 100 12/29/17 14:00 12/29/17 15:35 Temperature Pulse Rate Respiratory Rate 19 Blood Pressure Pulse Oximetry 100 Intake & Output 12/28/17 12/29/17 12/29/17 18:59 06:59 18:59 Weight 60.4 kg Narrative: HEENT/Neuro: No pallor or icterus, tongue moist, DEEP, drowsy, easily arousable , speech slurred. Left-sided facial droop with left hemiparesis with grade 4 power. Grade 5 power in right upper and lower extremity. Neck: No JVD Chest/pulmonary: CTA bilaterally Cardiovascular: S1-S2 regular no gallop or murmur GI/abdomen: Soft, nontender, bowel sounds present Extremities: Warm bilaterally, no edema Caprini VTE Risk Assessment Caprini VTE Risk Assessment: Moderate/High Risk (score >= 2) Caprini Risk Assessment Model: Point Value = 1 Point Value = 2 Point Value = 3 Point Value = 5 Age 41-60 Minor surgery BMI > 25 kg/m2 Swollen legs Varicose veins or History of unexplained or recurrent spontaneous Oral contraceptives or hormone replacement Sepsis (< 1 month) Serious lung disease, including pneumonia (< 1 month) Abnormal pulmonary function Acute myocardial infarction Congestive heart failure (< 1 month) History of inflammatory bowel disease Medical patient at bed rest Age 61-74 Arthroscopic surgery Major open surgery (> 45 min) Laparoscopic surgery (> 45 min) Malignancy Confined to bed (> 72 hours) Immobilizing plaster cast Central venous access Age >= 75 History of VTE Family history of VTE Factor V Leiden Prothrombin [id number] Lupus anticoagulant Anticardiolipin antibodies Elevated serum homocysteine Heparin-induced thrombocytopenia Other congenital or acquired thrombophilia Stroke (< 1 month) Elective arthroplasty Hip, pelvis, or leg fracture Acute spinal cord injury (< 1 month) Prophylaxis Regimen: Total Risk Factor Score Risk Level Prophylaxis Regimen 0-1 Low Early ambulation 2 Moderate Order ONE of the following: *Sequential Compression Device (SCD) *Heparin 5000 units SQ BID 3-4 Higher Order ONE of the following medications: *Heparin 5000 units SQ TID *Enoxaparin/Lovenox 40 mg SQ daily (WT < 150 kg, CrCl > 30 mL/min) *Enoxaparin/Lovenox 30 mg SQ daily (WT < 150 kg, CrCl > 10-29 mL/min) *Enoxaparin/Lovenox 30 mg SQ BID (WT < 150 kg, CrCl > 30 mL/min) AND/OR *Sequential Compression Device (SCD) 5 or more Highest Order ONE of the following medications: *Heparin 5000 units SQ TID (Preferred with Epidurals) *Enoxaparin/Lovenox 40 mg SQ daily (WT < 150 kg, CrCl > 30 mL/min) *Enoxaparin/Lovenox 30 mg SQ daily (WT < 150 kg, CrCl > 10-29 mL/min) *Enoxaparin/Lovenox 30 mg SQ BID (WT < 150 kg, CrCl > 30 mL/min) AND *Sequential Compression Device (SCD) Assessment and Plan - Assessment and Plan Plan: Elderly male with Ischemic stroke with left hemiparesis Encephalopathy Plan Neuro: Admit to ICU, neurochecks, stroke protocol. MRI brain for further evaluation. Neurology consulted. Antiplatelet therapy to be decided by neurology. Further stroke workup per neurology. Cardiovascular: IV hydration, watch for hypotension. Keep SBP less than 220/ 120. Pulm: Protecting airway currently. May require intubation for airway protection if neuro status worsens. GI/ liver: NPO for now. Renal/ : Follow I/O, monitor/ replete electrolytes, Follow BUN/ Cr ID: No indication for antibiotics at this time. heme: Follow CBC, coags. Endocrine: Watch for hyperglycemia, SSI for glycemic control if needed. Prophylaxis: Pepcid/ SCDs. SQ Heparin when OK with Neurology D/W Niece and daughter at bedside. Condition critical. Time spent for critical care excluding procedures: 40 min
[2017-12-29] MEDS ORDERED: Labetalol HCl Inj 100 MG/20 ML Vial IV.PUSH PRN (16:58)
[2017-12-29] MEDS ORDERED: Aspirin 300 MG Supp RECTAL STA (18:20)
[2017-12-29] MEDS: Senna/Docusate Sodium 8.6/50 MG Tablet PO SCH (20:28)
[2017-12-29] MEDS: Famotidine PF Inj 20 MG/2 ML Vial IV.PUSH SCH (20:28)
[2017-12-30] MEDS ORDERED: Chlorhexidine Gluconate 2% 1 Pack (2 Cloths) TOPICAL PRN (04:00)
[2017-12-30 05:23] LABS: Baso % (Auto) 0.5 % (0.0-2.0); Eos # (Auto) 0.2 th/mm3 (0.0-0.4); Eos % (Auto) 3.9 % (0.0-4.0); Hematocrit 38.9 % (39.0-51.0); Hemoglobin 13.1 gm/dL (13.0-17.0); Lymph # (Auto) 1.9 th/mm3 (1.0-4.8); Lymph % (Auto) 31.7 % (9.0-44.0); Mean Corpuscular HGB Conc 33.8 % (32.0-36.0); Mean Corpuscular Hemoglobin 31.9 pg (27.0-34.0); Mean Corpuscular Volume 94.3 fL (80.0-100.0); Mean Platelet Volume 8.4 fL (7.0-11.0); Mono # (Auto) 0.5 th/mm3 (0.0-0.9); Mono % (Auto) 8.3 % (0.0-8.0); Neut # (Auto) 3.4 th/mm3 (1.8-7.7); Neut % (Auto) 55.6 % (16.0-70.0); Platelet Count 138 th/mm3 (150-450); Red Blood Count 4.12 mil/mm3 (4.50-5.90); Red Cell Distribution Width 13.8 % (11.6-17.2); White Blood Count 6.1 th/mm3 (4.0-11.0)
[2017-12-30 05:28] LABS: Activated Partial Thrombo Time 25.1 sec (24.3-30.1); Prothrombin Time 10.5 sec (9.8-11.6)
[2017-12-30 05:50] LABS: Magnesium 1.8 mg/dL (1.5-2.5); Phosphorus 2.5 mg/dL (2.5-4.9)
[2017-12-30] MEDS: Chlorhexidine Gluconate 2% 1 Pack (2 Cloths) TOPICAL SCH (07:33)
[2017-12-30] MEDS ORDERED: Aspirin 300 MG Supp RECTAL SCH (09:00)
--- NOTE | 2017-12-30 09:14 | MB ---
cc: Lilo Díaz MD DATE: 12/29/2017 ALSO KNOWN : Raymundo RENNER. HISTORY OF PRESENT ILLNESS: This is a 77-year-old man brought in as a stroke alert. Last seen normal is really unclear, but apparently he was having some issues yesterday with a possible seizure. Today, he was driving and apparently someone had seen that he was not acting appropriate and I am not sure if pulled over and called [facility], found to be weak on the left side and garbled speech. The patient cannot give any history. His ex- is more involved with his level of care. She should be coming in but family member states that he has a history of colon cancer treated at [facility]. She does not know his other history as well as his medications, but apparently, yesterday when he had this questionable seizure-like event, he refused to come in. His time of onset of symptoms is really unknown. PAST MEDICAL HISTORY: Only thing I am told is colon cancer and he uses inhalers for possible COPD and/or possible asthma. ALLERGIES: UNKNOWN. FAMILY HISTORY: Unknown. MEDICATIONS: Unknown. PHYSICAL EXAMINATION: On exam, he is an elderly man lying in bed in no distress. He does not have a gaze deviation. His pupils are pinpoint. Extraocular muscles are intact. Difficult to tell visual last. Face looks fairly symmetrical. He is edentulous. He will not stick his tongue out. He does follow simple commands. He can squeeze with the right hand, cannot squeeze with the left. Can wiggle toes on the right better than on the left. He can lift his right leg up, cannot lift the left leg up. Cannot lift his left arm up. He does not tell me if he can feel pain, but does withdraw to noxious stimuli, more in the legs at this time. Does not follow for cerebellar testing. Visual last difficult to assess at bedside, but he does cross midline bilaterally. Gait will not be assessed. LABORATORY DATA: CBC: White count 7.3, hemoglobin 13.7, hematocrit 40.6, his platelets are 137,000. PTT is 23.8, fibrinogen 392, BUN 25, creatinine 1.05, GFR 61. Troponin less than 0.02, CK 70. As far as reports CT of the head already shows significant findings consistent with edema throughout the right basal ganglia and temporal lobe, both medially and posteriorly. No hemorrhage noted. His head CTA shows 1.3 cm filling defect involving the right MCA, atherosclerotic disease throughout the vertebral system and anterior cerebral arteries. The findings on his neck CTA does not show any carotid disease. IMPRESSION: Right hemispheric stroke, most likely with already significant changes per CT with some filling defect and atherosclerotic changes prominent over the right MCA territory. Does have some left-sided deficits. Certainly hemiparesis. RECOMMENDATIONS: Obtain an MRI of the brain with and without contrast to determine if this is a stroke or mass-like finding, I tend to think this is more of a stroke. Acute onset is really unknown. He is not a candidate for TPA unless interventional feels that he is amenable to any interventional treatment. We will defer to them for that. His family members, ex- should be bringing in his list of past medical history, as well as his medications. At this point in time he should be started at least on rectal aspirin 300 mg, permissible hypertension, head of bed flat. If he has aspiration issues then go ahead and put it to 30 degrees. He needs to be admitted via manager oncology to the ICU for close neuromonitoring. PT, OT, speech therapy, rehab consult, stroke navigator consult. SCDs and Lovenox for DVT prevention. Further recommendations will be made accordingly. I will also add an EEG given the findings that he may have had a seizure yesterday per family's history. Lilo Díaz MD DF/ct , 11:36 AM , 11:46 AM
--- NOTE | 2017-12-30 12:07 | P.PN ---
Subjective Interval history: sleepy arouses easily passed swallow eval I'm told. denies headache or pain. Physical Exam Vital signs: Vital Signs 12/29/17 13:15 12/29/17 13:35 12/29/17 14:00 Temperature Pulse Rate 72 73 Respiratory Rate 19 18 19 Blood Pressure 160/90 H 152/74 H Pulse Oximetry 100 12/29/17 15:35 12/29/17 16:00 12/29/17 20:00 Temperature 98 F 98.7 F Pulse Rate 69 62 Respiratory Rate 13 14 Blood Pressure 178/85 H 157/77 H Pulse Oximetry 100 100 100 12/30/17 00:00 12/30/17 01:00 12/30/17 04:00 Temperature 98.1 F 98.1 F 98.0 F Pulse Rate 80 80 65 Respiratory Rate 15 Blood Pressure 154/72 H 143/73 H Pulse Oximetry 100 99 12/30/17 06:00 12/30/17 08:10 Temperature 98.0 F Pulse Rate Respiratory Rate Blood Pressure Pulse Oximetry 99 Intake & Output 12/29/17 12/30/17 12/30/17 18:59 06:59 18:59 Intake Total 0 / 0 Output Total 600 / 600 Balance 0 / 0 -600 / -600 Weight 60.4 kg Intake: Oral 0 / 0 Output: Urine 600 / 600 Other: # Voids 2 # Incontinent Voids 2 # Bowel Movements 0 Narrative: awakens opens eyes speech slurred uses left side able to lift arm and leg off bed right side normal dtrs 1+ toes w/d gait held today. - Constitutional no acute distress - Routine HEENT Exam Head: Present: normocephalic, atraumatic Eye: Present: EOMI, PERRL - Detailed Neurological Exam: Coma Scale Eye Opening: Spontaneous Motor Response: Obey commands Results - Labs CBC & Chem 7: 12/30/17 04:37 12/29/17 10:11 Laboratory Results - last 24 hr 12/29/17 12/29/17 12/29/17 10:11 10:11 18:40 WBC RBC Hgb POC Hgb (Calc) 13.6 Hct POC Hct 40.0 MCV MCH MCHC RDW Plt Count MPV Neut % (Auto) Lymph % (Auto) Emmet % (Auto) Eos % (Auto) Baso % (Auto) Neut # (Auto) Lymph # (Auto) Emmet # (Auto) Eos # (Auto) Baso # (Auto) WBC Differential Differential Comment PT INR APTT POC Sodium 140 Sodium 141 Cancelled POC Potassium 3.9 Potassium 4.0 Cancelled POC Chloride 106 Chloride 109 H Cancelled Carbon Dioxide 23.8 Cancelled Anion Gap 8 Cancelled POC BUN 27 H BUN 25 H Cancelled Creatinine 1.05 Cancelled POC Creatinine 1.0 Estimated GFR 61 L Cancelled POC Glucose 109 Random Glucose 106 Cancelled Calcium 8.8 Cancelled Prot Corrected Calcium Cancelled Phosphorus Magnesium Total Bilirubin 0.3 Cancelled AST 18 Cancelled ALT 14 Cancelled Alkaline Phosphatase 62 Cancelled Total Creatine Kinase 70 Troponin I Less than 0.02 L Total Protein 7.2 Cancelled Albumin 3.6 Cancelled Nasal Screen MRSA (PCR) Not detected 12/30/17 12/30/17 12/30/17 04:37 04:37 04:37 WBC 6.1 RBC 4.12 L Hgb 13.1 POC Hgb (Calc) Hct 38.9 L POC Hct MCV 94.3 MCH 31.9 MCHC 33.8 RDW 13.8 Plt Count 138 L MPV 8.4 Neut % (Auto) 55.6 Lymph % (Auto) 31.7 Emmet % (Auto) 8.3 H Eos % (Auto) 3.9 Baso % (Auto) 0.5 Neut # (Auto) 3.4 Lymph # (Auto) 1.9 Emmet # (Auto) 0.5 Eos # (Auto) 0.2 Baso # (Auto) 0.0 WBC Differential . Differential Comment Auto diff final PT 10.5 INR 1.0 APTT 25.1 POC Sodium Sodium POC Potassium Potassium POC Chloride Chloride Carbon Dioxide Anion Gap POC BUN BUN Creatinine POC Creatinine Estimated GFR POC Glucose Random Glucose Calcium Prot Corrected Calcium Phosphorus 2.5 Magnesium 1.8 Total Bilirubin AST ALT Alkaline Phosphatase Total Creatine Kinase Troponin I Total Protein Albumin Nasal Screen MRSA (PCR) - Imaging Impressions Head MRI 12/29/17 10:37 CONCLUSION: 1. No evidence of metastatic disease. 2. Large area of acute infarct involving the right basal ganglia, insula, portions of the right temporal lobe and right parietal lobe. There is mild sulcal effacement identified within this area. No evidence of significant mass effect or midline shift. No hemorrhagic transformation is seen. Head MRA 12/29/17 10:37 CONCLUSION: 1. Lack of visualization of the right middle cerebral artery corresponding with a large area of infarct seen on comparison brain MRI involving the right insula, basal ganglia and temporal lobe/parietal lobe. Neck MRA 12/29/17 10:37 CONCLUSION: 1. Negative MRA Carotids. 2. Segment of nonvisualization of the right middle cerebral artery. Percent stenosis is calculated using the diameter of the stenotic region over the diameter of the normal distal internal carotid artery Assessment and Plan - Assessment (1) CVA (cerebral vascular accident) Code(s): I63.9 - Cerebral infarction, unspecified Status: Acute - Plan 300mg pr asa qd can change to 325mg po diet per ST PT-OT rehab consult flp scds lovenox eeg permissible htn today. may need f/u CT brain to look for edema stat if acute change otherwise check in am. d/w daughter.
--- NOTE | 2017-12-30 12:09 | ECG ---
Date Performed: 12/29/2017 Time Performed: 10:52:32 PTAGE: 89 years EKG: Sinus rhythm POSSIBLE RIGHT ATRIAL ENLARGEMENT LEFT ATRIAL ENLARGEMENT POSSIBLE LEFT VENTRICULAR HYPERTROPHY ABNO RMAL ECG NO PREVIOUS TRACING DOCTOR: Vishal Paniagua Interpretating Date/Time 12/30/2017 12:08:34
[2017-12-30] MEDS: Senna/Docusate Sodium 8.6/50 MG Tablet PO SCH ×2 (14:20→20:16)
[2017-12-30] MEDS: Sod Chloride 0.9% Inj 1,000 ML IV.CONT SCH ×3 (14:20→14:29)
[2017-12-30] MEDS: Famotidine PF Inj 20 MG/2 ML Vial IV.PUSH SCH ×2 (14:20→20:16)
[2017-12-30 14:26] LABS: Chol/HDL Ratio 4.19 Ratio; HDL Cholesterol 42.4 mg/dL (40.0-60.0); Thyroid Stimulating Hormone 0.815 uIU/mL (0.358-3.740)
[2017-12-30] MEDS: Aspirin 325 MG Tablet PO SCH (16:38)
--- NOTE | 2017-12-30 17:14 | ECHRPT ---
Indication: CVA/TIA CONCLUSIONS The left ventricular systolic function is normal with an estimated ejection fraction in the range of 60-65%. Normal left ventricular size. Wall thickness is normal. No regional wall motion abnormalities are present. Trace mitral valve regurgitation. Aortic valve sclerosis is present. [id number]-[id number] aortic valve regurgitation. There is trace tricuspid valve regurgitation. The estimated pulmonary arterial pressure is 35 mmHg. Trivial pulmonary valve regurgitation. BP: / HR: Rhythm: Sinus MEASUREMENTS (Male / Female) Normal Values Technical Quality:Good 2D ECHO LV Diastolic Diameter PLAX 4.1 cm 4.2 - 5.9 / 3.9 - 5.3 cm LV Systolic Diameter PLAX 2.9 cm IVS Diastolic Thickness 1.0 cm 0.6 - 1.0 / 0.6 - 0.9 cm LVPW Diastolic Thickness 1.1 cm 0.6 - 1.0 / 0.6 - 0.9 cm LV Relative Wall Thickness 0.5 LVOT Diameter 1.9 cm LA Systolic Diameter LX 3.0 cm 3.0 - 4.0 / 2.7 - 3.8 cm LV Ejection Fraction MOD 4C 62.7 % LV Ejection Fraction 4C AL 65.9 % M-MODE Aortic Root Diameter MM 2.3 cm LA Systolic Diameter MM 3.7 cm LA Ao Ratio MM 1.6 AV Cusp Separation MM 2.1 cm DOPPLER AV Peak Velocity 151.0 cm/s AV Peak Gradient 9.1 mmHg AI Peak Velocity 470.5 cm/s AI Peak Gradient 88.5 mmHg AI Pressure Half Time 320.5 ms LVOT Peak Velocity 121.0 cm/s LVOT Peak Gradient 5.9 mmHg AV Area Cont Eq pk 2.3 cm MV Area PHT 3.1 cm Mitral E Point Velocity 97.7 cm/s Mitral A Point Velocity 121.0 cm/s Mitral E to A Ratio 0.8 LV E' Lateral Velocity 7.9 cm/s Mitral E to LV E' Lateral Ratio 12.4 LV E' Septal Velocity 6.5 cm/s Mitral E to LV E' Septal Ratio 15.0 TR Peak Velocity 250.0 cm/s TR Peak Gradient 25.0 mmHg Right Atrial Pressure 10.0 mmHg Pulmonary Artery Systolic Pressu 35.0 mmHg Right Ventricular Systolic Press 35.0 mmHg PV Peak Velocity 71.9 cm/s PV Peak Gradient 2.1 mmHg FINDINGS LEFT VENTRICLE The left ventricular systolic function is normal with an estimated ejection fraction in the range of 60-65%. Normal left ventricular size. Wall thickness is normal. No regional wall motion abnormalities are present. RIGHT VENTRICLE Normal right ventricular size and systolic function. LEFT ATRIUM The left atrial size is normal. RIGHT ATRIUM The right atrial size is normal. ATRIAL SEPTUM Normal atrial septal thickness without atrial level shunting by limited color doppler interrogation. AORTA The aortic root and proximal ascending aorta are normal in size on limited imaging. MITRAL VALVE Structurally normal mitral valve. Trace mitral valve regurgitation. AORTIC VALVE Trileaflet aortic valve. Aortic valve sclerosis is present. Ymzy-jq-otzlfjst aortic valve regurgitation. TRICUSPID VALVE Structurally normal tricuspid valve. There is trace tricuspid valve regurgitation. The estimated pulmonary arterial pressure is 35 mmHg. PULMONARY VALVE Trivial pulmonary valve regurgitation. VESSELS The inferior vena cava is normal in size. PERICARDIUM No pericardial effusion. Abilio West MD, FACC (Electronically Signed) Final Date:30 December 2017 17:13
--- NOTE | 2017-12-30 17:55 | P.PNCC ---
Subjective Subjective Remarks/Hospital Course: 12/29: HPI Narrative: 78-year-old male was brought in by EMS for altered mental status, aphasia, left sided weakness. Family member called EMS this morning. Family member reported to EMS that patient is not speaking and seems to have left-sided weakness. Family member unable to provide approximately time the symptoms started. EMS reported was called to the home yesterday for hypotension. Patient refused treatment yesterday. Patient is unable to provide any information. No past medical history available. No list of medication available. No allergy available. Head CT done in the ER showed right MCA territory infarct with cerebral edema. Patient was evaluated by neurology. I accepted patient for admission to critical care medicine service and evaluated him in the ER earlier. At that time he was laying in the ER stretcher easily arousable on command with left-sided weakness. He did not appear to be any acute distress and was protecting his airway adequately at the time. He reportedly had a seizure yesterday. 12/30: Resting comfortably in bed. Drowsy, easily arousable, following commands. Left hemiparesis persists. Not in any acute distress. Objective Vital Signs / I&O: Vital Signs 12/29/17 20:00 12/30/17 00:00 12/30/17 01:00 Temperature 98.7 F 98.1 F 98.1 F Pulse Rate 62 80 80 Respiratory Rate 14 15 Blood Pressure 157/77 H 154/72 H Pulse Oximetry 100 100 12/30/17 04:00 12/30/17 06:00 12/30/17 08:00 Temperature 98.0 F 98.0 F 97.9 F Pulse Rate 65 68 Respiratory Rate 27 H Blood Pressure 143/73 H 156/72 H Pulse Oximetry 99 99 12/30/17 08:10 12/30/17 09:00 12/30/17 10:00 Temperature 98.3 F 98.6 F Pulse Rate 68 66 Respiratory Rate 16 16 Blood Pressure 122/60 170/80 H Pulse Oximetry 99 96 98 12/30/17 12:00 12/30/17 13:00 12/30/17 14:00 Temperature 98.1 F 98.0 F 98.6 F Pulse Rate 60 64 64 Respiratory Rate 17 19 17 Blood Pressure 171/89 H 184/08 H 210/93 H Pulse Oximetry 99 99 100 12/30/17 15:00 12/30/17 16:00 Temperature 97.9 F 98.3 F Pulse Rate 68 64 Respiratory Rate 24 20 Blood Pressure 170/89 H 169/89 H Pulse Oximetry 99 100 Intake & Output 12/29/17 12/30/17 12/30/17 18:59 06:59 18:59 Intake Total 0 / 0 1000 / 1000 Output Total 600 / 600 Balance 0 / 0 -600 / -600 1000 / 1000 Weight 60.4 kg Intake: IV 1000 / 1000 NS Inj 1,000 ML @ 70 mls/hr IV. 1000 / 1000 CONT .[id number] [facility] Rx#:[id number] Oral 0 / 0 Output: Urine 600 / 600 Other: # Voids 2 # Incontinent Voids 2 # Bowel Movements 0 Result Diagrams: 12/30/17 04:37 12/29/17 10:11 Objective Remarks: HEENT/Neuro: No pallor or icterus, tongue moist, DEEP, drowsy, easily arousable , speech slurred. Left-sided facial droop with left hemiparesis with grade 4 power. Grade 5 power in right upper and lower extremity. Neck: No JVD Chest/pulmonary: CTA bilaterally Cardiovascular: S1-S2 regular no gallop or murmur GI/abdomen: Soft, nontender, bowel sounds present Extremities: Warm bilaterally, no edema Assessment and Plan - Assessment and Plan Plan: Elderly male with Ischemic stroke with left hemiparesis Encephalopathy Plan Neuro: Admit to ICU, neurochecks, stroke protocol. Neurology following. Continue ASA. Further stroke workup per neurology. Repeat head CT ordered for tomorrow. Cardiovascular: IV hydration, watch for hypotension. Keep SBP less than 220/ 120. Pulm: Protecting airway currently. GI/ liver: Advance diet per speech/ swallow therapist recomendations. Renal/ : Follow I/O, monitor/ replete electrolytes, Follow BUN/ Cr ID: No indication for antibiotics at this time. heme: Follow CBC, coags. Endocrine: Watch for hyperglycemia, SSI for glycemic control if needed. Prophylaxis: Pepcid/ SCDs. SQ Heparin when OK with Neurology D/W daughter at bedside. Consult and transfer to hospitalist service for further medical management. Critical care will be available as needed.
--- NOTE | 2017-12-30 18:47 | MG ---
cc: Lilo Díaz MD EEG NUMBER: [id number] LOCATION: Room 1334 INDICATIONS: History of stroke with left-sided weakness, had a seizure prior to the stroke. The patient's first name is Raymundo. He is alert, cooperative. MRI showed large area of right hemispheric stroke to the basal ganglia, right temporal lobe, parietal lobe. No other medications except for antiplatelets. DESCRIPTION OF RECORD: The patient has an overall background rhythm of 10.5 Hz, 20-40 microvolts. Overall, symmetrical background. Maybe a little bit more slowing over the right hemisphere compared to the left, but not very prominent. EKG is questionable as far as sinus, may be some arrhythmia noted in it. Hyperventilation could not be done. Photic stimulation with a mild driving response. IMPRESSION: Questionable slowing over the right compared to the left hemisphere, but the left hemisphere seems normal. Normal alpha rhythm. There is no epileptic activity. The slowing on the right side may be due to his stroke. Clinical correlation. MD LOUIS Mccann/ajmie/sudarshan , 04:42 PM , 04:47 PM
[2017-12-31 05:10] LABS: Albumin 3.1 g/dL (3.4-5.0); Anion Gap 9 meq/L (5-15); Aspartate Aminotransferase 14 U/L (15-37); Blood Urea Nitrogen 17 mg/dL (7-18); Calcium 8.3 mg/dL (8.5-10.1); Carbon Dioxide 23.2 meq/L (21.0-32.0); Chloride 110 meq/L (98-107); Glomerular Filtration Rate 76 mL/min (>89); Glucose,Random 79 mg/dL (74-106); Potassium 3.9 meq/L (3.5-5.1); Sodium 142 meq/L (136-145)
[2017-12-31 05:11] LABS: Alanine Aminotransferase 11 U/L (12-78)
[2017-12-31 05:13] LABS: Alkaline Phosphatase 61 U/L (45-117); Total Protein 6.7 g/dL (6.4-8.2)
[2017-12-31 05:21] LABS: Red Blood Count 4.45 mil/mm3 (4.50-5.90)
[2017-12-31 05:27] LABS: Corrected White Blood Count 7.5 th/mm3 (4.0-11.0); White Blood Count 6.9 th/mm3 (4.0-11.0)
[2017-12-31 05:28] LABS: Hematocrit 43.2 % (39.0-51.0); Hemoglobin 14.1 gm/dL (13.0-17.0); Mean Corpuscular HGB Conc 32.5 % (32.0-36.0); Mean Corpuscular Hemoglobin 31.6 pg (27.0-34.0); Mean Corpuscular Volume 97.2 fL (80.0-100.0); Mean Platelet Volume 8.5 fL (7.0-11.0); Platelet Count 145 th/mm3 (150-450); Red Cell Distribution Width 13.9 % (11.6-17.2)
--- NOTE | 2017-12-31 05:33 | CT ---
EXAM DATE: 12/31/2017 5:19 AM EDT AGE/SEX: 89 years / Male INDICATIONS: Follow up stroke. CLINICAL DATA: This is the patient's sequela encounter. Patient reports that signs and symptoms have been present for 1 day and indicates a pain score of Nonresponsive. MEDICAL/SURGICAL HISTORY: Non-responsive. Non-responsive. RADIATION DOSE: 56.35 CTDI (mGy) COMPARISON: [facility] [place], CT HEAD W/O CONTRAST, 12/29/2017. . TECHNIQUE: CT of the head without contrast. Using automated exposure control and adjustment of the mA and/or kV according to patient size, radiation dose was kept as low as reasonably achievable to ob tain optimal diagnostic quality images. DICOM format image data is available electronically for revi ew and comparison. FINDINGS: Cerebrum: There is an evolving right middle cerebral artery distribution infarct. No hemorrhage or s hift. Posterior Fossa: The cerebellum and brainstem are intact. The 4th ventricle is midline. The cerebe llopontine angle is unremarkable. Extracranial: The visualized portion of the orbits is intact. Skull: The calvaria is intact. No evidence of skull fracture. CONCLUSION: 1. Evolving right MCA distribution infarct. Mild localized mass effect. No midline shift. . Electronically signed by: Vinny Robb MD 12/31/2017 5:32 AM EDT
[2017-12-31] MEDS: Chlorhexidine Gluconate 2% 1 Pack (2 Cloths) TOPICAL SCH (05:59)
[2017-12-31] MEDS: Sod Chloride 0.9% Inj 1,000 ML IV.CONT SCH (05:59)
[2017-12-31 08:02] LABS: Eosinophils 2 % (0-4)
[2017-12-31 08:04] LABS: Lymphocytes 54 % (9-44); Monocytes 6 % (0-8)
[2017-12-31 08:05] LABS: Platelet Morphology Normal (Normal)
[2017-12-31] MEDS: Aspirin 325 MG Tablet PO SCH (10:04)
[2017-12-31] MEDS: Senna/Docusate Sodium 8.6/50 MG Tablet PO SCH ×2 (10:04→20:00)
[2017-12-31] MEDS: Famotidine PF Inj 20 MG/2 ML Vial IV.PUSH SCH ×2 (10:05→20:00)
[2017-12-31] MEDS ORDERED: Non-Formulary Drug (Amlodipine-Benazepril [Amlodipine-Benazepril] 1 CAP) PO SCH (10:30)
--- NOTE | 2017-12-31 11:27 | P.PN ---
Subjective Interval history: no new issues awake follows commands Physical Exam Vital signs: Vital Signs 12/30/17 12:00 12/30/17 13:00 12/30/17 14:00 Temperature 98.1 F 98.0 F 98.6 F Pulse Rate 60 64 64 Respiratory Rate 17 19 17 Blood Pressure 171/89 H 184/08 H 210/93 H Pulse Oximetry 99 99 100 12/30/17 15:00 12/30/17 16:00 12/30/17 19:00 Temperature 97.9 F 98.3 F Pulse Rate 68 64 62 Respiratory Rate 24 20 20 Blood Pressure 170/89 H 169/89 H 174/76 H Pulse Oximetry 99 100 100 12/30/17 20:00 12/31/17 00:00 12/31/17 04:00 Temperature 98.8 F 98.4 F 98.3 F Pulse Rate 75 64 79 Respiratory Rate 18 17 21 Blood Pressure 207/90 H 180/80 H 187/83 H Pulse Oximetry 100 99 100 12/31/17 08:00 Temperature 97.6 F Pulse Rate 59 L Respiratory Rate 10 L Blood Pressure 209/101 H Pulse Oximetry 100 Intake & Output 12/30/17 12/31/17 12/31/17 18:59 06:59 18:59 Intake Total 1000 / 1000 600 / 600 Output Total 275 / 275 Balance 725 / 725 600 / 600 Weight 63 kg Intake: IV 1000 / 1000 600 / 600 NS Inj 1,000 ML @ 70 mls/hr IV. 1000 / 1000 600 / 600 CONT .[id number] [facility] Rx#:[id number] Output: Urine 275 / 275 Other: # Incontinent Voids 1 2 # Urine Diapers 2 Date of Last Bowel Movement 12/31/17 12/31/17 # Bowel Movements 0 1 Weight On Admission 60.408 kg - Constitutional no acute distress - Routine HEENT Exam Head: Present: normocephalic, atraumatic Eye: Present: EOMI - Routine Neurological Exam Present: alert - Detailed Neurological Exam: Coma Scale Motor Response: Obey commands Results - Labs CBC & Chem 7: 12/31/17 04:16 12/31/17 04:16 Laboratory Results - last 24 hr 12/30/17 12/31/17 12/31/17 12:56 04:16 04:16 WBC 6.9 Corrected WBC 7.5 RBC 4.45 L Hgb 14.1 Hct 43.2 MCV 97.2 MCH 31.6 MCHC 32.5 RDW 13.9 Plt Count 145 L MPV 8.5 Prelim Diff (Auto) Manual diff required WBC Differential Manual diff final Seg Neuts % (Manual) 38 Lymphocytes % (Manual) 54 H Monocytes % (Manual) 6 Eosinophils % (Manual) 2 Abs Neuts (Manual) 2.9 Differential Comment . Platelet Estimate Low L Platelet Morphology Normal Sodium 142 Potassium 3.9 Chloride 110 H Carbon Dioxide 23.2 Anion Gap 9 BUN 17 Creatinine 0.87 Estimated GFR 76 L Random Glucose 79 Calcium 8.3 L Total Bilirubin 0.5 AST 14 L ALT 11 L Alkaline Phosphatase 61 Total Protein 6.7 Albumin 3.1 L Triglycerides 83 Cholesterol 178 LDL Cholesterol, Calc 119 H HDL Cholesterol 42.4 Cholesterol/HDL Ratio 4.19 Vitamin B12 613 TSH 0.815 - Imaging Impressions Head CT 12/31/17 00:00 CONCLUSION: 1. Evolving right MCA distribution infarct. Mild localized mass effect. No midline shift. . Assessment and Plan - Assessment (1) CVA (cerebral vascular accident) Code(s): I63.9 - Cerebral infarction, unspecified Status: Acute - Plan asa 325mg po f/u ct evolving right mca w/mild mass effect pt-ot-st rehab when bed available can go to telemetry if no other issues. scds sq heparin
[2017-12-31] MEDS: Lisinopril 20 MG Tablet PO SCH (11:55)
--- NOTE | 2017-12-31 15:30 | P.DS ---
Date of admission: 12/29/17 11:51 Primary care physician: UNKNOWN Brief History from admission: HPI Narrative: 78-year-old male was brought in by EMS for altered mental status , aphasia, left sided weakness. Family member called EMS this morning. Family member reported to EMS that patient is not speaking and seems to have left- sided weakness. Family member unable to provide approximately time the symptoms started. EMS reported was called to the home yesterday for hypotension. Patient refused treatment yesterday. Patient is unable to provide any information. No past medical history available. No list of medication available. No allergy available. Head CT done in the ER showed right MCA territory infarct with cerebral edema. Patient was evaluated by neurology. I accepted patient for admission to critical care medicine service and evaluated him in the ER earlier. At that time he was laying in the ER stretcher easily arousable on command with left-sided weakness. He did not appear to be any acute distress and was protecting his airway adequately at the time. He reportedly had a seizure yesterday. DS: Medications - Discharge Medications Prescriptions: atorvastatin 40 mg PO DAILY #30 tab DS: Summary Hospital Course: Patient was admitted, treated medically for a large infarct involving the right basal ganglia, insula, and portions of the right temporal and parietal lobe. Had a residual droop and substantial weakness in the left side. Patient has met maximal benefit from hospitalization is clinically stable for discharge to a rehab facility. - Time Spent with Patient Total time spent providing and/or coordinating discharge services: Less than 30 minutes - Quality: Stroke Last date observed well: 12/28/17 Exam Vital signs: Vital Signs 12/30/17 16:00 12/30/17 19:00 12/30/17 20:00 Temperature 98.3 F 98.8 F Pulse Rate 64 62 75 Respiratory Rate 20 20 18 Blood Pressure 169/89 H 174/76 H 207/90 H Pulse Oximetry 100 100 100 12/31/17 00:00 12/31/17 04:00 12/31/17 08:00 Temperature 98.4 F 98.3 F 97.6 F Pulse Rate 64 79 59 L Respiratory Rate 17 21 10 L Blood Pressure 180/80 H 187/83 H 209/101 H Pulse Oximetry 99 100 100 12/31/17 09:57 12/31/17 12:00 Temperature 97.9 F Pulse Rate 88 Respiratory Rate 20 Blood Pressure 183/92 H Pulse Oximetry 100 100 Intake & Output 12/30/17 12/31/17 12/31/17 18:59 06:59 18:59 Intake Total 1000 / 1000 600 / 600 400 / 400 Output Total 275 / 275 Balance 725 / 725 600 / 600 400 / 400 Weight 63 kg Intake: IV 1000 / 1000 600 / 600 400 / 400 NS Inj 1,000 ML @ 70 mls/hr IV. 1000 / 1000 600 / 600 400 / 400 CONT .[id number] [facility] Rx#:[id number] Output: Urine 275 / 275 Other: # Incontinent Voids 1 2 # Urine Diapers 2 Date of Last Bowel Movement 12/31/17 12/31/17 # Bowel Movements 0 1 Weight On Admission 60.408 kg Narrative: Left-sided facial droop, Left-sided arm and leg weakness Alert and oriented Results Procedures completed during hospitalization: . Labs on day of discharge: Labs from last 24 hours 12/31/17 12/31/17 04:16 04:16 WBC 6.9 Corrected WBC 7.5 RBC 4.45 L Hgb 14.1 Hct 43.2 MCV 97.2 MCH 31.6 MCHC 32.5 RDW 13.9 Plt Count 145 L MPV 8.5 Prelim Diff (Auto) Manual diff required WBC Differential Manual diff final Seg Neuts % (Manual) 38 Lymphocytes % (Manual) 54 H Monocytes % (Manual) 6 Eosinophils % (Manual) 2 Abs Neuts (Manual) 2.9 Differential Comment . Platelet Estimate Low L Platelet Morphology Normal Sodium 142 Potassium 3.9 Chloride 110 H Carbon Dioxide 23.2 Anion Gap 9 BUN 17 Creatinine 0.87 Estimated GFR 76 L Random Glucose 79 Calcium 8.3 L Total Bilirubin 0.5 AST 14 L ALT 11 L Alkaline Phosphatase 61 Total Protein 6.7 Albumin 3.1 L - Impressions ITS Impressions Chest X-Ray 12/29/17 10:16 CONCLUSION: Negative examination. Head CTA 12/29/17 10:16 CONCLUSION: 1. 1.3 cm filling defect involving the right middle cerebral artery. 2. 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 Negative CTA Carotid. Head MRI 12/29/17 10:37 CONCLUSION: 1. No evidence of metastatic disease. 2. Large area of acute infarct involving the right basal ganglia, insula, portions of the right temporal lobe and right parietal lobe. There is mild sulcal effacement identified within this area. No evidence of significant mass effect or midline shift. No hemorrhagic transformation is seen. Head MRA 12/29/17 10:37 CONCLUSION: 1. Lack of visualization of the right middle cerebral artery corresponding with a large area of infarct seen on comparison brain MRI involving the right insula, basal ganglia and temporal lobe/parietal lobe. Neck MRA 12/29/17 10:37 CONCLUSION: 1. Negative MRA Carotids. 2. Segment of nonvisualization of the right middle cerebral artery. Percent stenosis is calculated using the diameter of the stenotic region over the diameter of the normal distal internal carotid artery Head CT 12/31/17 00:00 CONCLUSION: 1. Evolving right MCA distribution infarct. Mild localized mass effect. No midline shift. . Discharge Plan - Discharge Disposition Patient Disposition: Discharge to SNF - Discharge Condition Condition: Stable - Discharge Order Discharge Orders: Discharge Order (Routine); Ordered 12/31/17 Ordered By: Jama Disla - Physicians Team Primary Care Provider: UNKNOWN, Attending Provider: Jama Disla Other Providers: Lilo Díaz MD ; Gabriela Sher MD ; Jaqueline Parsons ; Marni ContrerasLuxemburg
[2018-01-01] MEDS: Chlorhexidine Gluconate 2% 1 Pack (2 Cloths) TOPICAL SCH (03:27)
[2018-01-01 06:58] LABS: Baso % (Auto) 0.6 % (0.0-2.0); Eos # (Auto) 0.3 th/mm3 (0.0-0.4); Hematocrit 43.1 % (39.0-51.0); Hemoglobin 14.7 gm/dL (13.0-17.0); Lymph # (Auto) 2.1 th/mm3 (1.0-4.8); Lymph % (Auto) 39.1 % (9.0-44.0); Mean Corpuscular HGB Conc 34.2 % (32.0-36.0); Mean Corpuscular Volume 93.7 fL (80.0-100.0); Mean Platelet Volume 8.2 fL (7.0-11.0); Mono # (Auto) 0.5 th/mm3 (0.0-0.9); Mono % (Auto) 9.9 % (0.0-8.0); Neut # (Auto) 2.5 th/mm3 (1.8-7.7); Neut % (Auto) 45.4 % (16.0-70.0); Platelet Count 139 th/mm3 (150-450); Red Cell Distribution Width 13.7 % (11.6-17.2); White Blood Count 5.4 th/mm3 (4.0-11.0)
[2018-01-01 07:21] LABS: Albumin 3.4 g/dL (3.4-5.0); Anion Gap 8 meq/L (5-15); Aspartate Aminotransferase 16 U/L (15-37); Blood Urea Nitrogen 15 mg/dL (7-18); Calcium 8.7 mg/dL (8.5-10.1); Carbon Dioxide 26.3 meq/L (21.0-32.0); Chloride 106 meq/L (98-107); Glomerular Filtration Rate 74 mL/min (>89); Glucose,Random 87 mg/dL (74-106); Sodium 140 meq/L (136-145)
[2018-01-01 07:23] LABS: Alanine Aminotransferase 13 U/L (12-78)
[2018-01-01 07:25] LABS: Alkaline Phosphatase 67 U/L (45-117); Total Protein 7.3 g/dL (6.4-8.2)
[2018-01-01] MEDS: Senna/Docusate Sodium 8.6/50 MG Tablet PO SCH ×2 (08:30→20:34)
[2018-01-01] MEDS: Famotidine PF Inj 20 MG/2 ML Vial IV.PUSH SCH ×2 (08:31→20:34)
[2018-01-01] MEDS: Lisinopril 20 MG Tablet PO SCH (08:31)
[2018-01-01] MEDS: Aspirin 325 MG Tablet PO SCH (08:31)
[2018-01-01] MEDS: amLODIPine 5 MG Tablet PO SCH (16:44)
[2018-01-02 05:07] LABS: Baso % (Auto) 0.6 % (0.0-2.0); Eos # (Auto) 0.3 th/mm3 (0.0-0.4); Eos % (Auto) 6.2 % (0.0-4.0); Hematocrit 43.6 % (39.0-51.0); Hemoglobin 14.5 gm/dL (13.0-17.0); Lymph # (Auto) 1.9 th/mm3 (1.0-4.8); Lymph % (Auto) 34.9 % (9.0-44.0); Mean Corpuscular HGB Conc 33.3 % (32.0-36.0); Mean Corpuscular Volume 95.9 fL (80.0-100.0); Mono # (Auto) 0.5 th/mm3 (0.0-0.9); Mono % (Auto) 9.6 % (0.0-8.0); Neut # (Auto) 2.6 th/mm3 (1.8-7.7); Neut % (Auto) 48.7 % (16.0-70.0); Platelet Count 145 th/mm3 (150-450); Red Blood Count 4.55 mil/mm3 (4.50-5.90); Red Cell Distribution Width 13.7 % (11.6-17.2); White Blood Count 5.4 th/mm3 (4.0-11.0)
[2018-01-02] MEDS: Chlorhexidine Gluconate 2% 1 Pack (2 Cloths) TOPICAL SCH (05:07)
[2018-01-02 05:18] LABS: Alanine Aminotransferase 13 U/L (12-78); Albumin 3.3 g/dL (3.4-5.0); Anion Gap 8 meq/L (5-15); Aspartate Aminotransferase 13 U/L (15-37); Blood Urea Nitrogen 15 mg/dL (7-18); Calcium 9.1 mg/dL (8.5-10.1); Carbon Dioxide 25.7 meq/L (21.0-32.0); Chloride 107 meq/L (98-107); Glomerular Filtration Rate 76 mL/min (>89); Glucose,Random 89 mg/dL (74-106); Sodium 141 meq/L (136-145)
[2018-01-02 05:21] LABS: Alkaline Phosphatase 60 U/L (45-117)
[2018-01-02] MEDS: Famotidine PF Inj 20 MG/2 ML Vial IV.PUSH SCH (09:02)
[2018-01-02] MEDS: amLODIPine 5 MG Tablet PO SCH (09:06)
[2018-01-02] MEDS: Aspirin 325 MG Tablet PO SCH (09:06)
[2018-01-02] MEDS: Senna/Docusate Sodium 8.6/50 MG Tablet PO SCH (09:16)
[2018-01-02] MEDS: Lisinopril 20 MG Tablet PO SCH ×2 (09:18→11:06)
[2018-01-02] MEDS: hydrALAZINE 10 MG Tablet PO SCH ×3 (11:02→17:55)
[2018-01-02 12:32] VITALS: RESP 17; O2SAT 98
--- NOTE | 2018-01-02 16:08 | HM ---
Date Performed: 12/31/2017 Time Performed: 14:19:00 HOOKUP DATE: 12/31/17 02:19:00 PM Mon ANALYSIS START TIME: 12/31/2017 2:24:00 PM ANALYSIS END TIME: 01/01/2018 2:27:59 PM PATIENT AGE: 77 PATIENT HEIGHT PATIENT WEIGHT DRUG LIST PATIENT DIAGNOSIS: ACUTE CVA TEST NARRATIVE: The patient's average heart rate was 74 BPM. Heart rates greater than 120 B PM were noted 1% of the time. Heart rates less than 50 BPM were noted < 1% of the time. No pause s exceeding 2.0 seconds were noted. 365 ventricular ectopics, which represented < 1% of the total beat count, were noted. The highest ventricular ectopic frequency occurred from 01:00 PM to 02:00 P M Tue. During this time 52 VE(s) occurred. Ventricular ectopics were observed as 356 isolated beat( s), as 3 couplet(s) and as 1 run(s). 29554 supraventricular ectopics, which represented 10% of th e total beat count, were noted. The highest supraventricular ectopic frequency occurred from 04:00 P M to 05:00 PM Mon. During this time 1035 SVE(s) occurred. No episodes of ST depression (defined as -1.0 mm or more) were noted in channel 1. No episodes of ST depression (defined as -1.0 mm or mor e) were noted in channel 2. No episodes of ST depression (defined as -1.0 mm or more) were noted in channel 3. TEST INTERPRETATION: sinus rhtyhm occasional premature ventricular complexes in singlets frequen t premature atrial complexes and short atrial runs Signed by : Abilio West
[2018-01-02 16:33] VITALS: BP 155/72; PULSE 72; TEMP 97.9
== END 2018-01-02 18:07 ==
LOC: NEPC 10:08 → EDBD 11:51 → NEDA 11:51 → N03 13:51 → N05 01-02 11:52
PROVIDERS: ADMIT Hospitalist; ATTEND Hospitalist

== ENCOUNTER 2018-01-14 17:53 | Inpatient (IN) ==
[2018-01-14] MEDS ORDERED: Sodium Chlor 0.9% Inj 500 ML IV.SIG ONE (18:18)
[2018-01-14 18:46] LABS: Baso % (Auto) 0.8 % (0.0-2.0); Eos # (Auto) 0.2 th/mm3 (0.0-0.4); Eos % (Auto) 3.6 % (0.0-4.0); Hematocrit 39.7 % (39.0-51.0); Hemoglobin 13.3 gm/dL (13.0-17.0); Lymph # (Auto) 1.6 th/mm3 (1.0-4.8); Lymph % (Auto) 31.5 % (9.0-44.0); Mean Corpuscular HGB Conc 33.5 % (32.0-36.0); Mean Corpuscular Hemoglobin 31.9 pg (27.0-34.0); Mean Corpuscular Volume 95.3 fL (80.0-100.0); Mean Platelet Volume 8.3 fL (7.0-11.0); Mono # (Auto) 0.5 th/mm3 (0.0-0.9); Mono % (Auto) 9.5 % (0.0-8.0); Neut # (Auto) 2.8 th/mm3 (1.8-7.7); Neut % (Auto) 54.6 % (16.0-70.0); Platelet Count 160 th/mm3 (150-450); Red Blood Count 4.17 mil/mm3 (4.50-5.90); Red Cell Distribution Width 13.1 % (11.6-17.2); White Blood Count 5.2 th/mm3 (4.0-11.0)
--- NOTE | 2018-01-14 19:07 | ED ---
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 Rehab staff noted that the patient was more weak than usual on the left about an hour ago. Family members at bedside state that the patient has had this worsening weakness since at least 4 PM yesterday. They state that before that time he was walking with assistance with a walker. On presentation the patient is alert and oriented. He follows commands. He states that he had "real bad" headache yesterday that has since improved. He endorses weakness on the left side but states that he was able to move the extremities better "before." He cannot identify an acute change. He denies headache, dizziness, vision changes, chest pain, palpitations , abdominal pain, nausea, vomiting, changes in bowel habits. Related Data Home Medications Medication Instructions Recorded Confirmed amlodipine-benazepril 1 cap PO DAILY 12/29/17 01/14/18 citalopram 20 mg PO DAILY 12/29/17 01/14/18 tamsulosin 0.4 mg PO DAILY 12/29/17 01/14/18 Previous Rx's Medication Instructions Recorded aspirin 325 mg PO DAILY tab 12/31/17 atorvastatin 40 mg PO DAILY #30 tab 12/31/17 Allergies Allergy/AdvReac Type Severity Reaction Status Date / Time No Known Allergies Allergy Unverified 01/14/18 18:03 Review of Systems ROS: all other systems reviewed are negative [facility] Medical History Medical History BPH (benign prostatic hyperplasia) (Acute) CVA (cerebral vascular accident) (Acute) Constipation (Acute) Depression (Acute) Hypertension (Acute) Social History Social History Substance History: No History of Abuse Second Hand Smoke Exposure: No Smoking Status: Current every day smoker Tobacco Type: Cigarettes How Often Do You Have a Drink Containing Alcohol: 2 to 3 times a week Recent Travel in [facility] within the Last 8 Weeks: No Recent Out of Country Travel within the Last 8 Weeks: No Immunization History Tetanus Immunization: Unsure Hx Influenza Vaccine This Season: Unable to Assess Exam Narrative Exam Narrative: GENERAL: Thin, well-developed -Algerian male no acute distress. SKIN: Focused skin assessment warm/dry. HEAD: Atraumatic. Normocephalic. EYES: Pupils equal and round. No scleral icterus. No injection or drainage. ENT: No nasal bleeding or discharge. Mucous membranes pink and moist. NECK: Trachea midline. No JVD. CARDIOVASCULAR: Regular rate and rhythm. No murmur appreciated. RESPIRATORY: No accessory muscle use. Clear to auscultation. Breath sounds equal bilaterally. GASTROINTESTINAL: Abdomen soft, non-tender, nondistended. Hepatic and splenic margins not palpable. MUSCULOSKELETAL: No obvious deformities. No clubbing. No cyanosis. No edema. NEUROLOGICAL: Awake and alert. Mildly slurred speech. Left-sided facial droop. Patient has sensation intact in the left-sided extremities however is unable to move against gravity. PSYCHIATRIC: Appropriate mood and affect; insight and judgment normal. Course Reevaluation(s) Reevaluation #1: Patient is resting comfortably no distress. Physical examination revealed left upper extremity paresis and profound left lower extremity weakness both proximal muscles and distal muscles. Dorsiflexion plantar flexion of great toe is weak when compared to the right. Patient is alert and oriented with stable vitals. Daughter at bedside. Time: 20:10 Initial Documented Vital Signs Temperature 98.6 F 01/14/18 18:07 Pulse Rate 76 01/14/18 18:07 Respiratory Rate 14 01/14/18 18:07 Blood Pressure 138/64 01/14/18 18:07 Pulse Oximetry 98 01/14/18 18:07 Last Documented Vital Signs Temperature 98.4 F 01/15/18 00:00 Pulse Rate 68 01/15/18 02:00 Respiratory Rate 16 01/15/18 00:00 Blood Pressure 147/73 H 01/15/18 00:00 Pulse Oximetry 100 01/14/18 21:52 Medical Decision Making RODOLFO Attestation RODOLFO supervised visit: Yes Attestation: I, Dr. Tadeo, have reviewed the advance practice practitioner' s documentation and am in agreement, met with the patient face to face, made the diagnosis, and the medical decision making was done by me. *My assessment and Findings: left upper and lower extremity paresis. S/P RT MCA Stroke MDM Narrative Medical decision making narrative: 77-year-old male with PMH of right MCA infarct on 12/31/17 presents to the ED via EMS from SNF. Family members at bedside states that they noticed around 4 PM yesterday that the patient was unable to move the left extremities. He states that prior to this he was walking with assistance and a walker. The patient states that he had a severe headache yesterday was provided Tylenol but is now asymptomatic. Vitals reviewed. Physical exam reveals left-sided facial droop, slurred speech. Patient is unable to move the limbs against gravity. He does have sensation intact. CBC unremarkable. CMP with protein corrected calcium of 7.6. UA pending. CT of the brain reveals evolving of old infarct but nothing new. I discussed the patient with Dr. Knapp. He recommends keeping the head of the bed flat, placing the patient on 70 mL an hour of normal saline and admit for MRI/MRA. I discussed this with the patient's family members at bedside. They are agreeable to the plan. I spoke with Dr. Jimenez who agrees to accept the patient to the medicine service. Please see medicine notes for disposition. Medical Screen Exam Complete: Yes Emergency Medical Condition: Yes Differential Diagnosis Differential Diagnosis: CVA versus UTI versus metabolic derangement versus other Lab Data Result diagrams: 01/14/18 18:26 01/14/18 18:26 Lab Results 01/14/18 01/14/18 01/14/18 Range/Units 18:26 18:26 23:41 WBC 5.2 (4.0-11.0) th/mm3 RBC 4.17 L (4.50-5.90) mil/mm3 Hgb 13.3 (13.0-17.0) gm/dL Hct 39.7 (39.0-51.0) % MCV 95.3 (80.0-100.0) fL MCH 31.9 (27.0-34.0) pg MCHC 33.5 (32.0-36.0) % RDW 13.1 (11.6-17.2) % Plt Count 160 (150-450) th/mm3 MPV 8.3 (7.0-11.0) fL Neut % (Auto) 54.6 (16.0-70.0) % Lymph % (Auto) 31.5 (9.0-44.0) % [place] % (Auto) 9.5 H (0.0-8.0) % Eos % (Auto) 3.6 (0.0-4.0) % Baso % (Auto) 0.8 (0.0-2.0) % Neut # (Auto) 2.8 (1.8-7.7) th/mm3 Lymph # (Auto) 1.6 (1.0-4.8) th/mm3 [place] # (Auto) 0.5 (0.0-0.9) th/mm3 Eos # (Auto) 0.2 (0.0-0.4) th/mm3 Baso # (Auto) 0.0 (0.0-0.2) th/mm3 WBC Differential . Differential Comment Auto diff final Sodium 142 (136-145) meq/L Potassium 3.8 (3.5-5.1) meq/L Chloride 110 H (98-107) meq/L Carbon Dioxide 26.2 (21.0-32.0) meq/L Anion Gap 6 (5-15) meq/L BUN 30 H (7-18) mg/dL Creatinine 0.85 (0.60-1.30) mg/dL Estimated GFR 87 L (>89) mL/min POC Glucose 98 (68-110) mg/dl Random Glucose 107 H (74-106) mg/dL Calcium 6.9 L* (8.5-10.1) mg/dL Prot Corrected Calcium 7.6 L (8.5-10.1) mg/dL Total Bilirubin 0.3 (0.2-1.0) mg/dL AST 15 (15-37) U/L ALT 12 (12-78) U/L Alkaline Phosphatase 56 (45-117) U/L Troponin I Less than 0.02 L (0.02-0.05) ng/mL Total Protein 5.8 L (6.4-8.2) g/dL Albumin 2.7 L (3.4-5.0) g/dL Imaging Data Radiologist's impression: Head MRA 01/14/18 00:00 CONCLUSION: 1. Occlusion of the right MCA again seen at its origin. 2. Prominent motion artifact. Head CT 01/14/18 18:18 CONCLUSION: 1. Evolving right MCA infarction with interval decrease in the amount of mass effect and hypodensity compared to 12/31/2017. 2. No new acute findings. . Head MRI 01/14/18 21:26 CONCLUSION: Acute infarct in the right cerebral hemisphere periventricular white matter matching the hypodensity seen on recent head CT. No evidence of midline shift. Neck MRA 01/14/18 21:26 CONCLUSION: 1. MRA of the neck within normal limits. 2. Occlusion of the proximal right MCA again noted. Percent stenosis is calculated using the diameter of the stenotic region over the diameter of the normal distal internal carotid artery Discharge Plan Discharge Disposition Patient Disposition: 30 Still Patient Discharge Condition Condition: Stable Discharge Details Diagnosis: CVA (cerebral vascular accident) Physicians Team ED Provider: Dano Tadeo ED Midlevel Provider: Niki Law Primary Care Provider: EV, Attending Provider: Donta Jimenez Other Providers: Gabriela Sher ; Lilo Díaz Discharge Interventions Interventions: ED Discharge Assessment Last Done: 01/14/18 23:05 Vital Signs Last Done: 01/14/18 18:07 Status ED Status: Left Department Discharge Information Discharge Date/Time: 01/14/18 23:06
[2018-01-14 19:20] LABS: Alanine Aminotransferase 12 U/L (12-78); Albumin 2.7 g/dL (3.4-5.0); Alkaline Phosphatase 56 U/L (45-117); Anion Gap 6 meq/L (5-15); Aspartate Aminotransferase 15 U/L (15-37); Blood Urea Nitrogen 30 mg/dL (7-18); Calcium 6.9 mg/dL (8.5-10.1); Carbon Dioxide 26.2 meq/L (21.0-32.0); Chloride 110 meq/L (98-107); Glomerular Filtration Rate 87 mL/min (>89); Glucose,Random 107 mg/dL (74-106); Potassium 3.8 meq/L (3.5-5.1); Sodium 142 meq/L (136-145); Total Protein 5.8 g/dL (6.4-8.2)
--- NOTE | 2018-01-14 19:44 | CT ---
EXAM DATE: 01/14/2018 7:19 PM EDT AGE/SEX: 77 years / Male INDICATIONS: Weakness CLINICAL DATA: This is the patient's initial encounter. Patient reports that signs and symptoms have been present for 1 day and indicates a pain score of 2/10. MEDICAL/SURGICAL HISTORY: Hepatitis C. None. RADIATION DOSE: 56.35 CTDI (mGy) COMPARISON: [facility], CT HEAD W/O CONTRAST, 12/31/2017. [facility], MR HEAD W & W/O CONTRAST, 12/29/2017. [facility], CTA HEAD W CONTRAST W 3D, 12/29/2017. [facility], CT HEAD W/O CONTRAST, 12/29/2017. . TECHNIQUE: CT of the head without contrast. Using automated exposure control and adjustment of the mA and/or kV according to patient size, radiation dose was kept as low as reasonably achievable to ob tain optimal diagnostic quality images. DICOM format image data is available electronically for revi ew and comparison. FINDINGS: Cerebrum: There has been further evolution of the acute right MCA infarction, now with encephalomala cic area involving the pro radiata. There is no residual mass effect or ventricular asymmetry. The cortical rim in the posterior sylvian region on the right side is slightly hyperdense. The sylvian f issure is symmetric in size. No new abnormality seen. No evidence of acute blood products. Posterior Fossa: The cerebellum and brainstem are intact. The 4th ventricle is midline. The cerebe llopontine angle is unremarkable. Extracranial: The visualized portion of the orbits is intact. Skull: The calvaria is intact. No evidence of skull fracture. CONCLUSION: 1. Evolving right MCA infarction with interval decrease in the amount of mass effect and hypodensity compared to 12/31/2017. 2. No new acute findings. . Electronically signed by: Rick Downing MD 01/14/2018 7:42 PM EDT
[2018-01-14] MEDS ORDERED: Dextrose 50% in Water 50 ML Vial IV.PUSH PRN (20:57)
[2018-01-14] MEDS: Heparin - SQ 10,000 UNITS/ML Vial SQ SCH (21:57)
[2018-01-14] MEDS: Sod Chloride 0.9% Inj 1,000 ML IV.CONT SCH (21:58)
[2018-01-14] MEDS ORDERED: Gadobutrol PF 10 MMOL/10 ML Vial (for RAD) IV.SIG ONE (22:55)
--- NOTE | 2018-01-14 23:01 | MR ---
EXAM DATE: 01/14/2018 10:55 PM EDT AGE/SEX: 77 years / Male INDICATIONS: CVA. CLINICAL DATA: This is the patient's initial encounter. Patient reports that signs and symptoms have been present for 1 day and indicates a pain score of 2/10. MEDICAL/SURGICAL HISTORY: Carcinoma, colon. Carcinoma, prostatic. Prostatectomy. Colon resect ion. COMPARISON: [facility] [place], CT HEAD W/O CONTRAST, 01/14/2018. . TECHNIQUE: Multiplanar, multisequence examination of the brain was performed without contrast. FINDINGS: There is an area of restricted diffusion in the right MCA territory involving the periventricular whi te matter of the frontoparietal region. It measures 5.9 x 1.3 cm. This matches the hypodensity seen o n recent CT. Findings indicate acute infarct. No evidence of midline shift. Extensive bilateral chron ic periventricular white matter ischemic changes also noted. No evidence for extra-axial fluid collec tion or intracranial hemorrhage. No intracranial mass lesion. CONCLUSION: Acute infarct in the right cerebral hemisphere periventricular white matter matching the hypodensity seen on recent head CT. No evidence of midline shift. Electronically signed by: Rashad You MD 01/14/2018 10:59 PM EDT
--- NOTE | 2018-01-14 23:19 | MR ---
EXAM DATE: 01/14/2018 11:09 PM EDT AGE/SEX: 77 years / Male INDICATIONS: . CVA, bilateral weakness for one day. CLINICAL DATA: This is the patient's initial encounter. Patient reports that signs and symptoms have been present for 1 day and indicates a pain score of 3/10. MEDICAL/SURGICAL HISTORY: Carcinoma, colon. Carcinoma, prostatic. Prostatectomy. Colon resect ion. COMPARISON: [facility] [place], MRA NECK W CONTRAST, 12/29/2017. . TECHNIQUE: 10 ml Gadavist (gadobutrol) contrast infused MRA (single exam dose) of the extracranial circulation was performed using a neurovascular coil. Postprocessing was performed, including rotati ng sub-volume maximum intensity projections of each carotid artery, rotating full-volume maximum inte nsity projections of both carotid arteries, sagittal and coronal sliding thin-slab reformations of ea ch carotid artery, and left oblique sliding thin-slab reformation through the aortic arch to include the origin of the arch branch vessels. FINDINGS: Aortic Arch : There is a three-vessel origin of the great vessels from the aorta. No evidence of o stial narrowing. Right Carotid : The common carotid artery is intact. The carotid bulb has a normal configuration wi thout ulceration or narrowing. The internal carotid artery lumen is smooth without stenosis. The ex ternal carotid artery is intact. Left Carotid : The common carotid artery is intact. The carotid bulb has a normal configuration wit hout ulceration or narrowing. The internal carotid artery lumen is smooth without stenosis. The ext ernal carotid artery is intact. Vertebrals : The vertebral arteries have a symmetric diameter. No stenotic lesions are seen. CONCLUSION: 1. MRA of the neck within normal limits. 2. Occlusion of the proximal right MCA again noted. Percent stenosis is calculated using the diameter of the stenotic region over the diameter of the nor mal distal internal carotid artery Electronically signed by: Rashad You MD 01/14/2018 11:18 PM RANDY
--- NOTE | 2018-01-14 23:41 | MR ---
EXAM DATE: 01/14/2018 10:55 PM EDT AGE/SEX: 77 years / Male INDICATIONS: CVA. Bilateral weakness for one day. CLINICAL DATA: This is the patient's initial encounter. Patient reports that signs and symptoms have been present for 1 day and indicates a pain score of 2/10. MEDICAL/SURGICAL HISTORY: Carcinoma, colon. Carcinoma, prostatic. Prostatectomy. Colon resect ion. COMPARISON: [facility], MRA HEAD W/O CONTRAST, 12/29/2017. . TECHNIQUE: 3D [id number] MRA was performed. Source images, multiplanar STS MIP, and 3D volum e MIP reconstructions were reviewed. FINDINGS: There is evidence of occlusion of the right MCA at its origin as seen on prior study of 12/29/2017. The re is prominent motion artifact on this study. Anterior cerebral arteries, left middle cerebral arter y, and posterior cerebral arteries are widely patent. Basilar artery and vertebral arteries also wide ly patent. CONCLUSION: 1. Occlusion of the right MCA again seen at its origin. 2. Prominent motion artifact. Electronically signed by: Rashad You MD 01/14/2018 11:39 PM EDT
--- NOTE | 2018-01-15 00:05 | P.HPIM ---
History of Present Illness Primary Care Physician: UNKNOWN History of Present Illness: 77-year-old male with a history of depression, hypertension, recent admission with left-sided weakness, right basal ganglia, insula, right temporal and parietal lobe infarct, treated medically and discharged to rehab on 12/31. Patient is sent in due to worsening of left-sided weakness worsening since 4 PM yesterday, and patient is no longer able to walk with assistance/walker. History is limited by patient with slurred speech. Denies any pain. Per the history obtained from chart review and discussion with ED physician. Family not at bedside at the time of my evaluation. Surgical history unknown Social history unknown. Family history unknown. Inpatient Certification: I certify that the inpatient services were ordered in accordance with Medicare regulations governing the order. This includes certification that hospital inpatient services are reasonable and necessary and in the case of services not specified as inpatient-only under 42 CFR 419.22(n), that they are appropriately provided as inpatient services in accordance to with the 2-midnight benchmark under 43 CFR 412.3(e) Estimated Total Length of Stay (Days): 3 Plans for Post Hospital Care: SNF Review of Systems Attempted, however limited due to patient's slurred speech. PMFSH - History History Provided By: Patient, Compensation And Benefits Advisor / EMT - Medical History Medical History: Medical History (Last Reviewed 01/14/18 @ 19:56 by LOLITA Garcia) BPH (benign prostatic hyperplasia) CVA (cerebral vascular accident) Constipation Depression Hypertension - Tobacco History Second Hand Smoke Exposure: No Tobacco Use In Past 30 Days: Yes Smoking Status: Current every day smoker Tobacco Type: Cigarettes - Alcohol History How Often Do You Have a Drink Containing Alcohol: 2 to 3 times a week - Substance Use History Substance History: No History of Abuse - Travel History Recent Travel in the [place] Within the Last 8 Weeks: No Recent Travel Out of the Country Within the Last 8 Weeks: No - Immunization History Tetanus Immunization: Unsure Hx Influenza Vaccine This Season: Unable to Assess Medications and Allergies Active Medications: Active Medications Aspirin (Aspirin) 325 mg PO DAILY ELLEN Atorvastatin Calcium (Lipitor) 40 mg PO DAILY ELLEN Citalopram Hydrobromide (Celexa) 20 mg PO DAILY ELLEN Dextrose (D50w Vial) 50 ml IV.PUSH UNSCH PRN PRN Reason: PER HYPOGLYCEMIA PROTOCOL Glucagon (Glucagon Inj) 1 mg OTHER UNSCH PRN PRN Reason: for Hypoglycemia Protocol Heparin Sodium (Porcine) (Heparin Inj) 5,000 units SQ Q12H [facility] Last Admin: 01/14/18 21:57 Dose: 5,000 units Sodium Chloride (Ns Inj) 1,000 mls @ 70 mls/hr IV.CONT .[id number] [facility] Last Admin: 01/14/18 21:58 Dose: 70 mls/hr Sodium Chloride (Ns Flush) 2 ml IV.FLUSH PRN PRN PRN Reason: FLUSH AFTER USING IV ACCESS Sodium Chloride (Ns Flush) 2 ml IV.FLUSH BID [facility] Last Admin: 01/14/18 21:58 Dose: Not Given Sodium Chloride (Ns Flush) 2 ml IV.FLUSH PRN PRN PRN Reason: FLUSH AFTER USING IV ACCESS Allergies Allergy/AdvReac Type Severity Reaction Status Date / Time No Known Allergies Allergy Unverified 01/14/18 18:03 Home Medications Medication Instructions Recorded Confirmed Type amlodipine-benazepril 1 cap PO DAILY 12/29/17 01/14/18 History citalopram 20 mg PO DAILY 12/29/17 01/14/18 History tamsulosin 0.4 mg PO DAILY 12/29/17 01/14/18 History Exam Vital signs: Vital Signs 01/14/18 18:07 01/14/18 21:52 Temperature 98.6 F Pulse Rate 76 70 Respiratory Rate 14 16 Blood Pressure 138/64 155/71 H Pulse Oximetry 98 100 Intake & Output 01/14/18 01/14/18 01/15/18 06:59 18:59 06:59 Intake Total 500 / 500 Balance 500 / 500 Weight 67.132 kg Intake: IV 500 / 500 NS Inj 500 ML @ Wide Open IV. 500 / 500 SIG BOLUS ONE Rx#:[id number] Narrative: GENERAL: Patient lying in bed. Appears comfortable. Slurred speech, however understands questions and answers simple questions appropriately. SKIN: Warm and dry. HEAD: Atraumatic. Normocephalic. EYES: Pupils equal and round. No scleral icterus. No injection or drainage. ENT: No nasal bleeding or discharge. Mucous membranes pink and moist. NECK: Trachea midline. No JVD. CARDIOVASCULAR: Regular rate and rhythm. RESPIRATORY: No accessory muscle use. Clear to auscultation. Breath sounds equal bilaterally. GASTROINTESTINAL: Abdomen soft, non-tender, nondistended. Hepatic and splenic margins not palpable. MUSCULOSKELETAL: Extremities without clubbing, cyanosis, or edema. No obvious deformities. NEUROLOGICAL: Awake and alert. Right pupil nonreactive, appears to have cataract. Extreme left-sided weakness, with inability to move left arm, and 3 out of 5 strength on the left. Full strength on the right. PSYCHIATRIC: Appropriate mood and affect; insight and judgment normal. Results - Labs CBC & Chem 7: 01/14/18 18:26 01/14/18 18:26 Labs: Short CBC 01/14/18 Range/Units 18:26 WBC 5.2 (4.0-11.0) th/mm3 Hgb 13.3 (13.0-17.0) gm/dL Hct 39.7 (39.0-51.0) % Plt Count 160 (150-450) th/mm3 BMP 01/14/18 18:26 Sodium 142 Potassium 3.8 Chloride 110 H Carbon Dioxide 26.2 BUN 30 H Creatinine 0.85 Calcium 6.9 L* Cardiac Enzymes 01/14/18 Range/Units 18:26 Troponin I Less than 0.02 L (0.02-0.05) ng/mL Liver Function 01/14/18 Range/Units 18:26 Total Bilirubin 0.3 (0.2-1.0) mg/dL AST 15 (15-37) U/L ALT 12 (12-78) U/L Alkaline Phosphatase 56 (45-117) U/L Albumin 2.7 L (3.4-5.0) g/dL - Imaging Impressions Head MRA 01/14/18 00:00 CONCLUSION: 1. Occlusion of the right MCA again seen at its origin. 2. Prominent motion artifact. Head CT 01/14/18 18:18 CONCLUSION: 1. Evolving right MCA infarction with interval decrease in the amount of mass effect and hypodensity compared to 12/31/2017. 2. No new acute findings. . Head MRI 01/14/18 21:26 CONCLUSION: Acute infarct in the right cerebral hemisphere periventricular white matter matching the hypodensity seen on recent head CT. No evidence of midline shift. Neck MRA 01/14/18 21:26 CONCLUSION: 1. MRA of the neck within normal limits. 2. Occlusion of the proximal right MCA again noted. Percent stenosis is calculated using the diameter of the stenotic region over the diameter of the normal distal internal carotid artery Caprini VTE Risk Assessment Caprini VTE Risk Assessment: Moderate/High Risk (score >= 2) Elrini Risk Assessment Model: Point Value = 1 Point Value = 2 Point Value = 3 Point Value = 5 Age 41-60 Minor surgery BMI > 25 kg/m2 Swollen legs Varicose veins or History of unexplained or recurrent spontaneous Oral contraceptives or hormone replacement Sepsis (< 1 month) Serious lung disease, including pneumonia (< 1 month) Abnormal pulmonary function Acute myocardial infarction Congestive heart failure (< 1 month) History of inflammatory bowel disease Medical patient at bed rest Age 61-74 Arthroscopic surgery Major open surgery (> 45 min) Laparoscopic surgery (> 45 min) Malignancy Confined to bed (> 72 hours) Immobilizing plaster cast Central venous access Age >= 75 History of VTE Family history of VTE Factor V Leiden Prothrombin [id number] Lupus anticoagulant Anticardiolipin antibodies Elevated serum homocysteine Heparin-induced thrombocytopenia Other congenital or acquired thrombophilia Stroke (< 1 month) Elective arthroplasty Hip, pelvis, or leg fracture Acute spinal cord injury (< 1 month) Prophylaxis Regimen: Total Risk Factor Score Risk Level Prophylaxis Regimen 0-1 Low Early ambulation 2 Moderate Order ONE of the following: *Sequential Compression Device (SCD) *Heparin 5000 units SQ BID 3-4 Higher Order ONE of the following medications: *Heparin 5000 units SQ TID *Enoxaparin/Lovenox 40 mg SQ daily (WT < 150 kg, CrCl > 30 mL/min) *Enoxaparin/Lovenox 30 mg SQ daily (WT < 150 kg, CrCl > 10-29 mL/min) *Enoxaparin/Lovenox 30 mg SQ BID (WT < 150 kg, CrCl > 30 mL/min) AND/OR *Sequential Compression Device (SCD) 5 or more Highest Order ONE of the following medications: *Heparin 5000 units SQ TID (Preferred with Epidurals) *Enoxaparin/Lovenox 40 mg SQ daily (WT < 150 kg, CrCl > 30 mL/min) *Enoxaparin/Lovenox 30 mg SQ daily (WT < 150 kg, CrCl > 10-29 mL/min) *Enoxaparin/Lovenox 30 mg SQ BID (WT < 150 kg, CrCl > 30 mL/min) AND *Sequential Compression Device (SCD) Assessment and Plan - Plan //Acute ischemic stroke = On top of recent stroke. MRI reviewed with new right cerebral hemisphere periventricular stroke. No evidence of midline shift Admission for ischemic stroke. Had a bed flat. Permissive hypertension. Speech therapy consultation = MRA neck without any stenosis. = Continue aspirin as prescribed. Neuro checks. Neurology consulted. Appreciate assistance. //Hyperlipidemia. Chronic. Continue statin. //History of depression. Continue citalopram. //History of hypertension Permissive hypertension. Hold off on blood pressure meds for now. //History of BPH. Will hold off on tamsulosin for now. Will monitor renal function. //Hypocalcemia. Calcium 6.9. Corrects to 8.0. Suspect lab error. Will recheck tomorrow. //DVT prophylaxis. Heparin ordered. Discussed Condition With: Patient, nurse, ED physician.
[2018-01-15 05:38] LABS: Calcium 8.7 mg/dL (8.5-10.1); Chol/HDL Ratio 2.86 Ratio; HDL Cholesterol 46.8 mg/dL (40.0-60.0)
[2018-01-15] MEDS: Citalopram 20 MG Tablet PO SCH ×2 (08:35→11:51)
[2018-01-15] MEDS: Heparin - SQ 10,000 UNITS/ML Vial SQ SCH ×2 (08:38→21:27)
[2018-01-15] MEDS ORDERED: Aspirin 325 MG Tablet PO SCH (09:00)
--- NOTE | 2018-01-15 11:26 | P.PN ---
Subjective Interval history: Nursing denies any deterioration since last night. Patient thinks that his right eye is somewhat painful. Says it just hurts. Otherwise has no other complaints. Daughters at the bedside. Physical Exam Vital signs: Vital Signs 01/14/18 18:07 01/14/18 21:52 01/15/18 00:00 Temperature 98.6 F 98.4 F Pulse Rate 76 70 78 Respiratory Rate 14 16 16 Blood Pressure 138/64 155/71 H 147/73 H Pulse Oximetry 98 100 01/15/18 00:26 01/15/18 01:00 01/15/18 02:00 Temperature Pulse Rate 71 64 68 Respiratory Rate Blood Pressure Pulse Oximetry 01/15/18 03:00 01/15/18 04:00 01/15/18 05:00 Temperature 98.4 F Pulse Rate 71 78 74 Respiratory Rate 16 Blood Pressure 138/68 Pulse Oximetry 01/15/18 06:00 01/15/18 07:00 01/15/18 08:00 Temperature 98.0 F Pulse Rate 80 83 86 Respiratory Rate 16 Blood Pressure 149/73 H Pulse Oximetry 98 01/15/18 09:00 01/15/18 10:00 01/15/18 11:00 Temperature 98.2 F Pulse Rate 87 68 85 Respiratory Rate 16 Blood Pressure 151/70 H Pulse Oximetry 96 Intake & Output 01/14/18 01/15/18 01/15/18 18:59 06:59 18:59 Intake Total 500 / 500 Balance 500 / 500 Weight 67.132 kg 53 kg Intake: IV 500 / 500 NS Inj 500 ML @ Wide Open IV. 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 on the left, 0/5 LLE plantarflexion has intact sensation to light finger touch over all 4 extremities Has slightly garbled speech Alert and oriented x3, has intact insight Results - Labs CBC & Chem 7: 01/14/18 18:26 01/14/18 18:26 Laboratory Results - last 24 hr 01/14/18 01/14/18 01/14/18 18:26 18:26 23:41 WBC 5.2 RBC 4.17 L Hgb 13.3 Hct 39.7 MCV 95.3 MCH 31.9 MCHC 33.5 RDW 13.1 Plt Count 160 MPV 8.3 Neut % (Auto) 54.6 Lymph % (Auto) 31.5 [place] % (Auto) 9.5 H Eos % (Auto) 3.6 Baso % (Auto) 0.8 Neut # (Auto) 2.8 Lymph # (Auto) 1.6 [place] # (Auto) 0.5 Eos # (Auto) 0.2 Baso # (Auto) 0.0 WBC Differential . Differential Comment Auto diff final Sodium 142 Potassium 3.8 Chloride 110 H Carbon Dioxide 26.2 Anion Gap 6 BUN 30 H Creatinine 0.85 Estimated GFR 87 L POC Glucose 98 Random Glucose 107 H Calcium 6.9 L* Prot Corrected Calcium 7.6 L Total Bilirubin 0.3 AST 15 ALT 12 Alkaline Phosphatase 56 Troponin I Less than 0.02 L Total Protein 5.8 L Albumin 2.7 L Triglycerides Cholesterol LDL Cholesterol, Calc HDL Cholesterol Cholesterol/HDL Ratio 01/15/18 01/15/18 03:22 08:02 WBC RBC Hgb Hct MCV MCH MCHC RDW Plt Count MPV Neut % (Auto) Lymph % (Auto) [place] % (Auto) Eos % (Auto) Baso % (Auto) Neut # (Auto) Lymph # (Auto) [place] # (Auto) Eos # (Auto) Baso # (Auto) WBC Differential Differential Comment Sodium Potassium Chloride Carbon Dioxide Anion Gap BUN Creatinine Estimated GFR POC Glucose 112 H Random Glucose Calcium 8.7 D Prot Corrected Calcium Total Bilirubin AST ALT Alkaline Phosphatase Troponin I Total Protein Albumin Triglycerides 44 Cholesterol 134 LDL Cholesterol, Calc 78 HDL Cholesterol 46.8 Cholesterol/HDL Ratio 2.86 - Imaging Impressions Head MRA 01/14/18 00:00 CONCLUSION: 1. Occlusion of the right MCA again seen at its origin. 2. Prominent motion artifact. Head CT 01/14/18 18:18 CONCLUSION: 1. Evolving right MCA infarction with interval decrease in the amount of mass effect and hypodensity compared to 12/31/2017. 2. No new acute findings. . Head MRI 01/14/18 21:26 CONCLUSION: Acute infarct in the right cerebral hemisphere periventricular white matter matching the hypodensity seen on recent head CT. No evidence of midline shift. Neck MRA 01/14/18 21:26 CONCLUSION: 1. MRA of the neck within normal limits. 2. Occlusion of the proximal right MCA again noted. Percent stenosis is calculated using the diameter of the stenotic region over the diameter of the normal distal internal carotid artery Assessment and Plan - Plan 77-year-old white male admitted for worsening strokelike symptoms with left- sided weakness. 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 Symptoms worsened and presented to the hospital for admission with new acute infarction extension. Right MCA extended infarction Extension noted on head MRI. Patient recently had a Holter monitor done which did not demonstrate any A. fib. Continue aspirin and Lipitor. Neurology consult pending. Permissive hypertension to end tonight Speech therapy following, PT/OT Debility We will request palliative care consultation per daughter's request to help elucidate goals of care. Daughter would like for patient to be closer to her in [place].
[2018-01-15] MEDS: Sod Chloride 0.9% Inj 1,000 ML IV.CONT SCH (11:50)
--- NOTE | 2018-01-15 12:32 | MB ---
cc: Lilo Díaz MD DATE: 01/15/2018 REASON FOR CONSULTATION: New stroke. HISTORY OF PRESENT ILLNESS: This is a 77-year-old man with a history of recent stroke, left-sided weakness, treated medically and discharged to rehabilitation on 12/31/2017. Has a history of hypertension, depression. Apparently was at [facility] when he noted that he had worsening left-sided weakness. The daughter thinks it may have occurred sometime Sunday, but they reported it yesterday, difficult to tell. He was also pooling his food in the left side of his cheek. He was no longer able to walk with assistance and a walker. He is now on a pureed diet. Cannot give me any history. He is sitting in a chair right now with the daughter at bedside. PAST MEDICAL HISTORY: Recent stroke, depression, hypertension, BPH. SOCIAL HISTORY: Smoker, alcohol a couple times a week. ALLERGIES: None since hospitalization. No substance abuse. MEDICATIONS: He was sent home on Lipitor, citalopram, and full dose aspirin. PHYSICAL EXAMINATION: VITAL SIGNS: Temperature is 98, pulse 68, respiratory rate 16, blood pressure 149/73. He has been in sinus rhythm I am told. NECK: Supple, no bruits, currently regular. NEUROLOGIC: He is awake and alert. Follows simple commands. Does not really speak. He has attenuated left nasolabial fold. Pupils reactive. Difficult to assess visual last at this time. Motor: He does have a left hemiparesis. He cannot lift his arm up against gravity nor can he wiggle his thumb. His tone is decreased, it is a 0/5 in the left arm. He can lift his left leg, antigravity is at best a 3/5. DTRs are a little bit brisk around the left toe, is upgoing. Cerebellar does not follow. Gait cannot be assessed. He can feel cold. He states "my hand is cold." So he did say 1 word. LABORATORY DATA: His CBC is really unremarkable. Chemistry: Calcium 6.9, today is 8.7. His hemoglobin A1c is pending. Glucose 112, BUN 30. GFR 87. Cholesterol 134, triglycerides 45, LDL 78, HDL 46.8. His neck MRA shows occlusion of the right MCA again noted. MRA of the neck otherwise was unremarkable. Head MR, again, occlusion of right MCA at the origin. Brain MRI showed acute infarct in the right periventricular white matter, matching the hypodensity on recent CT, no shift. ASSESSMENT AND PLAN: Increased weakness on the left side secondary to what looks like a new right-sided stroke. At this point in time I would recommend changing him over to baby aspirin and adding Plavix. In about 1 weeks' time, would consider seriously to anticoagulate him. Unless he is a significant fall risk we can certainly try him on Eliquis 5 mg twice daily, but I would at least wait a week until that stroke matures a bit to delay any hemorrhagic conversion. In the interim, baby aspirin with Plavix 75 mg daily. He will need PT, OT, speech therapy. Again, his daughter is thinking of taking him to [place]. Maybe they can get him admitted to a rehab facility, possibly [facility], there. Continue current care and if PT has not been consulted we will get them consulted. He does not need to stay flat any longer. We can get him up and out of a chair. Avoid hypotension. Deep venous thrombosis prevention with subcutaneous heparin. MD LOUIS Mccann/jojo , 11:03 AM , 11:15 AM
--- NOTE | 2018-01-15 12:46 | P.CONPAL ---
Consult Service: Palliative Care Requesting Physician: Jama Disla Reason for Consult: a. To assist with evaluation and management of symptoms including: debility b. To assist medical decision maker(s) with: better understanding of current medical conditions; weighing benefits/burdens of medical treatment options; making medical treatment decisions. Primary Care Provider: UNKNOWN History of Present Illness History of Present Illness: Mr. Persaud is a 77yo gentleman with a past medical history of hypertension, hyperlipidemia, depression, and BPH. The patient just recently (12/29/17) suffered an ischemic stroke to the right basal ganglia and right temporal and parietal lobe. He was discharged to rehab on 12/31/17 with left-sided weakness and by all reports was doing well. He was walking with a walker and 1-person assist and communicating clearly. The patient reports a headache yesterday and it was noted that he was substantially weaker on the left side. He was brought in to the hospital 01/14/18 for further evaluation and treatment. Initial emergency room evaluation revealed: * Temp 98.6, pulse 76, respiratory rate 14, BP 138/64, pulse oximetry 98% * WBC 5.2, hemoglobin 13.3, hematocrit 39.7, platelets 160, neutrophils 54.6 * Chloride 110, BUN 30, creatinine 0.85, estimated GFR 87, glucose 107, calcium 6.9, PCC 7.6 * AST 15, ALT 12, total bilirubin 0.3, alkaline phosphatase 56, troponin 0.02, albumin 2.7 * Head CT: 1. Evolving right MCA infarction with interval decrease in the amount of mass effect and hypodensity compared to 12/31/17 2. No new acute findings * Head MRI: Acute infarct in the right cerebral hemisphere periventricular white matter matching the hypodensity seen on recent head CT. No evidence of midline shift * Head MRA: 1. Occlusion of the right MCA again seen at its origin 2. Prominent motion artifact The patient was admitted for acute on chronic CVA. Standard stroke precautions were initiated and Dr. Díaz (neurology) was consulted who recommended aspirin and Plavix therapy. Currently the family would like to explore options for rehab in [place]. Palliative care was consulted to assist with symptoms management revolving around increased debility as requested by the patient's daughter. The patient was examined in the room in conjunction with KEZIA Mcconnell. No family was present. He was somewhat somnolent but arousable for questioning. He is oriented to self and place but unable to give the year. I am unclear if this is frustration with slurred speech or if he is truly confused. His left upper and lower extremity are flaccid and there is noticeable facial droop to the left side. He complains of a minor headache which he reports was relieved when he received aspirin. He denies any other pain at this time. He states his appetite has been poor as of late and that he has had to wear different clothes because of associated weight loss. He does state that he has been coughing more recently, especially when he eats. Further discussion about goals, etc per family conference. Function/Cognitive Trajectory: Prior to his first CVA, Mr. Persaud was ambulating at home without assist. He lived independently and drove himself where he needed to go. Cognitively sharp with no reported deficits and able to perform all ADL's on his own. After discharge from his previous stroke, he was has some residual left-sided weakness but able to ambulate with a walker, was able to communicate, and was on a puree diet Review of Systems Constitutional: Reports anorexia Respiratory: Reports cough Neurologic: Reports other Comments: new, increased left-sided weakness Psychiatric: Reports change in appetite PMFSH - History History Provided By: Patient - Medical History Medical History: Medical History (Last Updated 01/15/18 @ 14:12 by KEZIA Coello) BPH (benign prostatic hyperplasia) CVA (cerebral vascular accident) Constipation Depression Hyperlipemia Hypertension - Surgical History Surgical History: Surgical History (Last Updated 01/15/18 @ 16:21 by KEZIA Coello) No history of previous surgery - Family History Family History: Family History (Last Updated 01/15/18 @ 16:22 by KEZIA Coello) Other Patient's brother is Patient's sister is - Social History I have reviewed the patient's Social History: Yes - Tobacco History Second Hand Smoke Exposure: No Tobacco Use In Past 30 Days: Yes Smoking Status: Current every day smoker Tobacco Type: Cigarettes - Alcohol History How Often Do You Have a Drink Containing Alcohol: 2 to 3 times a week - Substance Use History Substance History: No History of Abuse - Travel History Recent Travel in the [facility] Within the Last 8 Weeks: No Recent Travel Out of the Country Within the Last 8 Weeks: No - Immunization History Tetanus Immunization: Unsure Hx Influenza Vaccine This Season: Unable to Assess Medications and Allergies Allergies Allergy/AdvReac Type Severity Reaction Status Date / Time No Known Allergies Allergy Unverified 01/14/18 18:03 Home Medications Medication Instructions Recorded Confirmed Type amlodipine-benazepril 1 cap PO DAILY 12/29/17 01/14/18 History citalopram 20 mg PO DAILY 12/29/17 01/14/18 History tamsulosin 0.4 mg PO DAILY 12/29/17 01/14/18 History Active Medications: Active Medications Aspirin (Ecotrin) 81 mg PO DAILY [facility] Last Admin: 01/15/18 11:51 Dose: 81 mg Atorvastatin Calcium (Lipitor) 40 mg PO DAILY [facility] Last Admin: 01/15/18 11:51 Dose: 40 mg Citalopram Hydrobromide (Celexa) 20 mg PO DAILY [facility] Last Admin: 01/15/18 11:51 Dose: 20 mg Clopidogrel Bisulfate (Plavix) 75 mg PO DAILY [facility] Last Admin: 01/15/18 11:51 Dose: 75 mg Dextrose (D50w Vial) 50 ml IV.PUSH UNSCH PRN PRN Reason: PER HYPOGLYCEMIA PROTOCOL Glucagon (Glucagon Inj) 1 mg OTHER UNSCH PRN PRN Reason: for Hypoglycemia Protocol Heparin Sodium (Porcine) (Heparin Inj) 5,000 units SQ Q12H [facility] Last Admin: 01/15/18 08:38 Dose: 5,000 units Sodium Chloride (Ns Inj) 1,000 mls @ 70 mls/hr IV.CONT .[id number] [facility] Last Admin: 01/15/18 11:50 Dose: 70 mls/hr Sodium Chloride (Ns Flush) 2 ml IV.FLUSH PRN PRN PRN Reason: FLUSH AFTER USING IV ACCESS Sodium Chloride (Ns Flush) 2 ml IV.FLUSH BID [facility] Last Admin: 01/15/18 08:35 Dose: Not Given Sodium Chloride (Ns Flush) 2 ml IV.FLUSH PRN PRN PRN Reason: FLUSH AFTER USING IV ACCESS Advance Directives Living Will: No Healthcare Surrogate: No Power of Sr. Unix System Administrator: No Today's verbally stated goals: The patient is somewhat difficult to understand due to slurred speech but does indicate that he wants his niece Evelyn and daughter Dianelys to be involved in his care. He does not have any written advanced directives but does verbalize that if it's his time he would want to "just in his sleep" Ethical and Legal Issues: No known legal or ethical issues at this time Physical Exam Vital Signs: Vital Signs - 24 hr 01/14/18 18:07 01/14/18 21:52 01/15/18 00:00 Temperature 98.6 F 98.4 F Pulse Rate 76 70 78 Respiratory Rate 14 16 16 Blood Pressure 138/64 155/71 H 147/73 H Pulse Oximetry 98 100 01/15/18 00:26 01/15/18 01:00 01/15/18 02:00 Temperature Pulse Rate 71 64 68 Respiratory Rate Blood Pressure Pulse Oximetry 01/15/18 03:00 01/15/18 04:00 01/15/18 05:00 Temperature 98.4 F Pulse Rate 71 78 74 Respiratory Rate 16 Blood Pressure 138/68 Pulse Oximetry 01/15/18 06:00 01/15/18 07:00 01/15/18 08:00 Temperature 98.0 F Pulse Rate 80 83 86 Respiratory Rate 16 Blood Pressure 149/73 H Pulse Oximetry 98 01/15/18 09:00 01/15/18 10:00 01/15/18 11:00 Temperature 98.2 F Pulse Rate 87 68 85 Respiratory Rate 16 Blood Pressure 151/70 H Pulse Oximetry 96 01/15/18 12:00 Temperature Pulse Rate 67 Respiratory Rate Blood Pressure Pulse Oximetry I&O: Intake & Output 01/13/18 01/14/18 01/15/18 01/16/18 06:59 06:59 06:59 06:59 Intake Total 500 / 500 1000 / 1000 Balance 500 / 500 1000 / 1000 Weight 53 kg Physical Exam: CONSTITUTIONAL/GENERAL: This is an adequately nourished patient, in no apparent distress. TUBES/LINES/DRAINS: PIV SKIN: No jaundice, rashes, or lesions. No wounds seen anteriorly. Skin temperature appropriate. Not diaphoretic. HEAD: Atraumatic. Normocephalic. EYES: Left pupil 2-3mm round and reactive. Right pupil with questionable reaction 3.5mm and somewhat misshapen. No scleral icterus. No injection or drainage. Fundi not examined. ENT: Hearing grossly normal. Nose without bleeding or purulent drainage. Throat without visible erythema, exudates, masses, or lesions. NECK: Trachea midline. Supple, nontender. No palpable thyroid enlargement or nodularity. CARDIOVASCULAR: Regular rate and rhythm without murmurs, gallops, or rubs. No JVD. Peripheral pulses symmetric. RESPIRATORY/CHEST: Symmetric, unlabored respirations. Clear to auscultation. Breath sounds equal bilaterally. No wheezes, rales, or rhonchi. GASTROINTESTINAL: Abdomen soft, non-tender, nondistended. No palpable masses. No guarding. Bowel sounds present. GENITOURINARY: Without palpable bladder distension. MUSCULOSKELETAL: Extremities without clubbing, cyanosis, or edema. No joint tenderness or effusion noted. No calf tenderness. No mottling or clubbing. LYMPHATICS: No palpable cervical or supraclavicular adenopathy. NEUROLOGICAL: lethargic but awakens to voice. Answers questions appropriately. Left upper and lower extremities flaccid though tactile sensation intact. PSYCHIATRIC: No obvious anxiety/depression. no apparent hallucinations or other psychotic thought process. Diagnostic Tests Laboratory: Laboratory Results - last 72 hr 01/14/18 01/14/18 01/14/18 18:26 18:26 23:41 WBC 5.2 RBC 4.17 L Hgb 13.3 Hct 39.7 MCV 95.3 MCH 31.9 MCHC 33.5 RDW 13.1 Plt Count 160 MPV 8.3 Neut % (Auto) 54.6 Lymph % (Auto) 31.5 [place] % (Auto) 9.5 H Eos % (Auto) 3.6 Baso % (Auto) 0.8 Neut # (Auto) 2.8 Lymph # (Auto) 1.6 [place] # (Auto) 0.5 Eos # (Auto) 0.2 Baso # (Auto) 0.0 WBC Differential . Differential Comment Auto diff final Sodium 142 Potassium 3.8 Chloride 110 H Carbon Dioxide 26.2 Anion Gap 6 BUN 30 H Creatinine 0.85 Estimated GFR 87 L POC Glucose 98 Random Glucose 107 H Calcium 6.9 L* Prot Corrected Calcium 7.6 L Total Bilirubin 0.3 AST 15 ALT 12 Alkaline Phosphatase 56 Troponin I Less than 0.02 L Total Protein 5.8 L Albumin 2.7 L Triglycerides Cholesterol LDL Cholesterol, Calc HDL Cholesterol Cholesterol/HDL Ratio 01/15/18 01/15/18 01/15/18 03:22 08:02 11:50 WBC RBC Hgb Hct MCV MCH MCHC RDW Plt Count MPV Neut % (Auto) Lymph % (Auto) [place] % (Auto) Eos % (Auto) Baso % (Auto) Neut # (Auto) Lymph # (Auto) [place] # (Auto) Eos # (Auto) Baso # (Auto) WBC Differential Differential Comment Sodium Potassium Chloride Carbon Dioxide Anion Gap BUN Creatinine Estimated GFR POC Glucose 112 H 96 Random Glucose Calcium 8.7 D Prot Corrected Calcium Total Bilirubin AST ALT Alkaline Phosphatase Troponin I Total Protein Albumin Triglycerides 44 Cholesterol 134 LDL Cholesterol, Calc 78 HDL Cholesterol 46.8 Cholesterol/HDL Ratio 2.86 Result Diagrams: 01/14/18 18:26 01/14/18 18:26 Imaging: Impressions Head MRA 01/14/18 00:00 CONCLUSION: 1. Occlusion of the right MCA again seen at its origin. 2. Prominent motion artifact. Head CT 01/14/18 18:18 CONCLUSION: 1. Evolving right MCA infarction with interval decrease in the amount of mass effect and hypodensity compared to 12/31/2017. 2. No new acute findings. . Head MRI 01/14/18 21:26 CONCLUSION: Acute infarct in the right cerebral hemisphere periventricular white matter matching the hypodensity seen on recent head CT. No evidence of midline shift. Neck MRA 01/14/18 21:26 CONCLUSION: 1. MRA of the neck within normal limits. 2. Occlusion of the proximal right MCA again noted. Percent stenosis is calculated using the diameter of the stenotic region over the diameter of the normal distal internal carotid artery Patient/Family Conference Present at Family Conference: KEZIA Mcconnell Family Conference Location: Telephone Issues Discussed: Discussed with the patient in a somewhat limited capacity due to lethargy and expressive aphasia. His niece Evelyn was update via phone on the following: * Palliative care role, purpose, approach * Additional medical, psychosocial, and spiritual history * Patients general health, functional status, and cognitive changes in the months leading up to the current hospitalization * Patient/family understanding of the current medical problems; reviewed current medical trajectory and possible risk for further decline * Patient/family understanding of prognosis * Patients goals of care; the family has stated they wish for the patient to continue therapy hopefully in [place] if transportation can be arranged * Questions answered to the best of my ability * Palliative care contact information provided Patient appears to have limited insight to the gravity of his condition, again this is questionable as to true lack of insight or due to lethargy and aphasia. He was able to verbalize that he would like his niece Evelyn and daughter Dianelys involved in his care. Discussed current goals with donta Rivas, left message for daughter Dianelys to call back Assessment and Plan - Disease Oriented Problem List (1) CVA (cerebral vascular accident) - Symptom Scale (1) Debility 0-10 Scale: Unable to quantify (2) Dysphagia 0-10 Scale: Unable to quantify Pertinent Non-Medical Issues: Psychosocial: The patient is retired and recently but remains in close communication with his . He was independent of all ADL's prior to his 1st stroke. He has 4 daughters though only 1 is involved in his care Spiritual: None, patient declined a meeting with the predator control trapper at this time Legal: As per [place] statues, in the absence of any written advance directive decision making falls to the majority of the adult children should the patient become unable to participate in his own care Ethical issues impacting care: There are no know ethical issues impacting Mr. Persaud's care at this time Important Contacts: Dianelys Jatin, daughter [phone] Evelyn Martin, niece [phone] Wyatt Purdyurgis, niece [phone] Prognosis: Given the fact that Mr. Persaud has had two major strokes in a relatively short amount of time, his recent decline in functional status (including aspiration concerns), lethargy and overall debility he is at an increased risk for mortality. Code Status: Full Code Plan: * LEGAL DECISION MAKER: The patient is able to participate in his health care at this time. He has indicated that he would like Evelyn (niece) and Dianelys ( daughter) involved in his care. Should he become incapacitated in anyway, decision making would fall to the majority of adult children. Palliative care will assist with health care surrogate declaration * GOALS: The patient is able to understand that he had another large stroke. He does affirm that he will need ongoing rehabilitation. In speaking with Evelyn, she states that family would like to work together to make decision regarding Mr. Persaud's care. Their ultimate goal would be to more him closer to his daughter Dianelys in [place] and to pursue aggressive rehab therapy. * CODE STATUS: FULL CODE, touched on 'worst case' scenarios with the patient concerning the possiblitl of decline. He verbalized a wish to just ' in his sleep'. Will continue to discuss further with the patient and family once a clear decision maker is elected * SYMPTOMS: Debility - The patient was currently undergoing physical therapy for previous stroke and it appeared to be going well. He is now unable to move his left lower and upper extremities when he could previously ambulate with a walker. He is extremely lethargic today. Would benefit from continued PT/OT/ST. Dysphagia - patient is working with ST, currently on puree diet though indicated that he continues to cough after he eats. He also reported some recent weight loss and poor appetite. Continue with speech recommendations, may benefit from dietary consult * Discussed with manager care management will continue to follow during hospital course as his condition evolves, to assit patient/family with understanding of medical conditons, weight benefits/burdens of treatment options , for clarification of goals of treatment. Additionally will assist with any symptoms of palliative concern Appreciation Thank you for the opportunity to participate in the care of Raymundo Riggs Reesesandor Attestation Collaborating Comments: Dual visit arlin MAST. Concur with above documentation/plan. Attestation: To help prompt me to consider important information that might be impacting today's encounter and assessment, information from prior notes written by myself or my colleagues may have been "brought forward" into today's note. My signature on this note, however, is an attestation that I personally performed the exam, history, and/or decision-making noted today, and, unless otherwise indicated, the interactions with patient, family, and staff as well as the review of records all occurred today. I also attest that the listed assessment and stated plan reflect my best clinical judgment today based on the combination of historical information, prior notes, and today's exam/ interactions. When time spent is documented, it refers only to time spent today by the signer, or if indicated, combined time spent today by collaborating physician/nurse practitioner.
[2018-01-15 16:09] LABS: Hemoglobin A1c 6.2 % (4.3-6.0)
--- NOTE | 2018-01-15 18:24 | ECG ---
Date Performed: 01/14/2018 Time Performed: 18:56:35 PTAGE: 77 years EKG: Sinus rhythm WITH SINUS ARRHYTHMIA POSSIBLE LEFT ATRIAL ENLARGEMENT Since the previous tracing, no significant ch tammy noted BORDERLINE ECG PREVIOUS TRACING : 12/29/2017 10.52 DOCTOR: Martell Salinas Interpretating Date/Time 01/15/2018 18:21:24
[2018-01-16] MEDS: Sod Chloride 0.9% Inj 1,000 ML IV.CONT SCH ×2 (01:29→20:56)
[2018-01-16 13:56] LABS: Hematocrit 38.4 % (39.0-51.0); Hemoglobin 12.8 gm/dL (13.0-17.0); Mean Corpuscular HGB Conc 33.2 % (32.0-36.0); Mean Corpuscular Hemoglobin 31.9 pg (27.0-34.0); Mean Corpuscular Volume 96.1 fL (80.0-100.0); Mean Platelet Volume 8.5 fL (7.0-11.0); Platelet Count 135 th/mm3 (150-450); White Blood Count 5.1 th/mm3 (4.0-11.0)
[2018-01-16] MEDS: Heparin - SQ 10,000 UNITS/ML Vial SQ SCH ×2 (14:13→20:57)
[2018-01-16] MEDS: Citalopram 20 MG Tablet PO SCH (14:13)
[2018-01-16 14:16] LABS: Anion Gap 8 meq/L (5-15); Blood Urea Nitrogen 21 mg/dL (7-18); Calcium 8.3 mg/dL (8.5-10.1); Carbon Dioxide 26.1 meq/L (21.0-32.0); Chloride 105 meq/L (98-107); Glomerular Filtration Rate Greater Than 89 mL/min (>89); Glucose,Random 145 mg/dL (74-106); Potassium 3.8 meq/L (3.5-5.1); Sodium 139 meq/L (136-145)
--- NOTE | 2018-01-16 16:50 | P.PNPAL ---
Reason for Visit Reason for visit: a. To assist with evaluation and management of symptoms including: debility b. To assist medical decision maker(s) with: better understanding of current medical conditions; weighing benefits/burdens of medical treatment options; making medical treatment decisions. Subjective Subjective/Interval History: Patient seen to follow-up on comfort, goals and possible family meeting. Patient has remained stable overnight no significant changes. Ordered for follow-up CT brain today, still pending at time of my visit. ST continues to follow no symptoms of aspiration recommended for pured diet with thin liquids. Nursing indicates he has been eating okay. Labs today stable, unremarkable. Discharge planning in process for discharge to rehab in [place] and assisting family. Apparently awaiting insurance approval. Patient seen in room, daughter Dianelys present. Patient is alert to the keeps his eyes closed. He is oriented and appropriate. He is flat limited engagement similar to yesterday. Aphasic at times. Notable facial droop. Continues to have weakness on left side he does not feel it is improving. Indicates he is feeling okay in general today. Indicates some mild pain to his right side around hip region declines repositioning when offered. Otherwise no complaints. Endorses intermittent cough nonproductive. Intermittent nausea earlier today none currently. Denies any other complaints, denies dyspnea. Met at length with daughter at bedside. Discussion included the following: =Palliative care role, purpose, approach =Additional medical, psychosocial, and spiritual history =Patients general health, functional status, and cognitive changes in the months leading up to the current hospitalization =family understanding of the current medical problems, treatments, review of recent diagnostics, prognosis going forward-review of potential complications and sequelae following stroke, hospitalization and rehab placement, possible may need long-term placement. =Review of CODE STATUS and what patient indicated yesterday; daughter indicated he probably would not want life support though she wishes to talk to him further about this no changes elected at this time to CODE STATUS. =Legal decision makers-patient again endorses he would want daughter Dianelys to be his primary decision maker. He is in agreement to complete healthcare surrogate form today. He is able to sign this. Copies given and faxed to medical records. =Questions answered to the best of my ability =Palliative care contact information provided Daughter appears to have good understanding of conditions and possible trajectory and prognosis going forward. She is trying to get the patient up to [place] so she will be able to actively participate in his rehabilitation efforts. She understands he is high risk for decline in further complications. She indicates she will be supportive of whatever his wishes are. She plans to talk with him further regarding CODE STATUS. I also reviewed with her if patient does continue to experience complications and decline that if he does not want further invasive measures or hospitalizations then hospice would be an option. Review of hospice role and philosophy. She is open to ongoing discussions as clinical course evolves. Advance Directives Health Care Surrogate: Copy in medical record Advance Directives Date on File: 01/16/18 Health Care Surrogate Name and Number: Dtr Dianelys Steiner Objective Vital Signs: Vital Signs 01/15/18 17:09 01/15/18 19:00 01/15/18 20:00 Temperature 98.4 F Pulse Rate 63 71 64 Respiratory Rate 16 Blood Pressure 136/64 Pulse Oximetry 01/15/18 21:00 01/15/18 22:00 01/15/18 23:00 Temperature 98.4 F Pulse Rate 63 65 75 Respiratory Rate 16 Blood Pressure 156/72 H Pulse Oximetry 96 01/16/18 00:00 01/16/18 01:00 01/16/18 02:00 Temperature Pulse Rate 67 72 68 Respiratory Rate Blood Pressure Pulse Oximetry 01/16/18 03:00 01/16/18 04:00 01/16/18 05:00 Temperature 98.0 F Pulse Rate 74 69 71 Respiratory Rate 16 Blood Pressure 157/73 H Pulse Oximetry 97 01/16/18 06:00 01/16/18 07:00 01/16/18 08:00 Temperature 98.3 F Pulse Rate 69 79 78 Respiratory Rate 16 Blood Pressure 151/86 H Pulse Oximetry 01/16/18 09:00 01/16/18 10:00 01/16/18 11:00 Temperature 98 F Pulse Rate 75 73 72 Respiratory Rate 16 Blood Pressure 152/72 H Pulse Oximetry 01/16/18 12:00 01/16/18 15:00 Temperature 98.7 F Pulse Rate 69 65 Respiratory Rate 16 Blood Pressure 142/69 H Pulse Oximetry 97 Intake & Output 01/15/18 01/16/18 01/16/18 18:59 06:59 18:59 Intake Total 1120 / 1120 1100 / 1100 Balance 1120 / 1120 1100 / 1100 Weight 54.5 kg Intake: IV 1000 / 1000 1000 / 1000 NS Inj 1,000 ML @ 70 mls/hr IV. 1000 / 1000 1000 / 1000 CONT .[id number] [facility] Rx#:[id number] Oral 120 / 120 100 / 100 Other: # Voids 3 2 # Incontinent Voids 2 Date of Last Bowel Movement 01/15/18 01/15/18 # Bowel Movements 1 Physical Exam: CONSTITUTIONAL/GENERAL: This is an adequately nourished patient, in no apparent distress. TUBES/LINES/DRAINS: PIV SKIN: No jaundice, rashes, or lesions. No wounds seen anteriorly. Skin warm/dry HEAD: Atraumatic. Normocephalic. EYES: Left pupil 2-3mm round and reactive. Right pupil with questionable reaction 3.5mm and somewhat misshapen. No scleral icterus. No injection or drainage. Fundi not examined. ENT: Hearing grossly normal. Nose without bleeding or purulent drainage. Throat without visible erythema, exudates, masses, or lesions. CARDIOVASCULAR: Irregular rate and rhythm without murmur. No JVD. Peripheral pulses symmetric. RESPIRATORY/CHEST: Symmetric, unlabored respirations. On room air. Clear to auscultation. Breath sounds equal bilaterally. GASTROINTESTINAL: Abdomen soft,flat non-tender, nondistended. No palpable masses. No guarding. Bowel sounds present. GENITOURINARY: Without palpable bladder distension. MUSCULOSKELETAL: Extremities without clubbing, cyanosis, or edema. No joint tenderness or effusion noted. No calf tenderness. No mottling or clubbing. NEUROLOGICAL:flat though awake. Mostly oriented, forgetful at times. Answers questions appropriately. Left upper and lower extremities flaccid though tactile sensation intact. Moves rt upper, rt lower well. Left facial droop present. PSYCHIATRIC: flat affect Diagnostic Tests Laboratory: Laboratory Results - last 72 hr 01/14/18 01/14/18 01/14/18 18:26 18:26 23:41 WBC 5.2 RBC 4.17 L Hgb 13.3 Hct 39.7 MCV 95.3 MCH 31.9 MCHC 33.5 RDW 13.1 Plt Count 160 MPV 8.3 Neut % (Auto) 54.6 Lymph % (Auto) 31.5 [place] % (Auto) 9.5 H Eos % (Auto) 3.6 Baso % (Auto) 0.8 Neut # (Auto) 2.8 Lymph # (Auto) 1.6 [place] # (Auto) 0.5 Eos # (Auto) 0.2 Baso # (Auto) 0.0 WBC Differential . Differential Comment Auto diff final Sodium 142 Potassium 3.8 Chloride 110 H Carbon Dioxide 26.2 Anion Gap 6 BUN 30 H Creatinine 0.85 Estimated GFR 87 L POC Glucose 98 Random Glucose 107 H Hemoglobin A1c Calcium 6.9 L* Prot Corrected Calcium 7.6 L Total Bilirubin 0.3 AST 15 ALT 12 Alkaline Phosphatase 56 Troponin I Less than 0.02 L Total Protein 5.8 L Albumin 2.7 L Triglycerides Cholesterol LDL Cholesterol, Calc HDL Cholesterol Cholesterol/HDL Ratio 01/15/18 01/15/18 01/15/18 03:22 03:22 08:02 WBC RBC Hgb Hct MCV MCH MCHC RDW Plt Count MPV Neut % (Auto) Lymph % (Auto) [place] % (Auto) Eos % (Auto) Baso % (Auto) Neut # (Auto) Lymph # (Auto) [place] # (Auto) Eos # (Auto) Baso # (Auto) WBC Differential Differential Comment Sodium Potassium Chloride Carbon Dioxide Anion Gap BUN Creatinine Estimated GFR POC Glucose 112 H Random Glucose Hemoglobin A1c 6.2 H Calcium 8.7 D Prot Corrected Calcium Total Bilirubin AST ALT Alkaline Phosphatase Troponin I Total Protein Albumin Triglycerides 44 Cholesterol 134 LDL Cholesterol, Calc 78 HDL Cholesterol 46.8 Cholesterol/HDL Ratio 2.86 01/15/18 01/15/18 01/15/18 11:50 16:34 20:01 WBC RBC Hgb Hct MCV MCH MCHC RDW Plt Count MPV Neut % (Auto) Lymph % (Auto) [place] % (Auto) Eos % (Auto) Baso % (Auto) Neut # (Auto) Lymph # (Auto) [place] # (Auto) Eos # (Auto) Baso # (Auto) WBC Differential Differential Comment Sodium Potassium Chloride Carbon Dioxide Anion Gap BUN Creatinine Estimated GFR POC Glucose 96 113 H 84 Random Glucose Hemoglobin A1c Calcium Prot Corrected Calcium Total Bilirubin AST ALT Alkaline Phosphatase Troponin I Total Protein Albumin Triglycerides Cholesterol LDL Cholesterol, Calc HDL Cholesterol Cholesterol/HDL Ratio 01/16/18 01/16/18 01/16/18 07:55 12:14 13:26 WBC 5.1 RBC 4.00 L Hgb 12.8 L Hct 38.4 L MCV 96.1 MCH 31.9 MCHC 33.2 RDW 13.0 Plt Count 135 L MPV 8.5 Neut % (Auto) Lymph % (Auto) [place] % (Auto) Eos % (Auto) Baso % (Auto) Neut # (Auto) Lymph # (Auto) [place] # (Auto) Eos # (Auto) Baso # (Auto) WBC Differential Differential Comment Sodium Potassium Chloride Carbon Dioxide Anion Gap BUN Creatinine Estimated GFR POC Glucose 90 105 Random Glucose Hemoglobin A1c Calcium Prot Corrected Calcium Total Bilirubin AST ALT Alkaline Phosphatase Troponin I Total Protein Albumin Triglycerides Cholesterol LDL Cholesterol, Calc HDL Cholesterol Cholesterol/HDL Ratio 01/16/18 13:26 WBC RBC Hgb Hct MCV MCH MCHC RDW Plt Count MPV Neut % (Auto) Lymph % (Auto) [place] % (Auto) Eos % (Auto) Baso % (Auto) Neut # (Auto) Lymph # (Auto) [place] # (Auto) Eos # (Auto) Baso # (Auto) WBC Differential Differential Comment Sodium 139 Potassium 3.8 Chloride 105 Carbon Dioxide 26.1 Anion Gap 8 BUN 21 H Creatinine 0.74 Estimated GFR Greater than 89 POC Glucose Random Glucose 145 H Hemoglobin A1c Calcium 8.3 L Prot Corrected Calcium Total Bilirubin AST ALT Alkaline Phosphatase Troponin I Total Protein Albumin Triglycerides Cholesterol LDL Cholesterol, Calc HDL Cholesterol Cholesterol/HDL Ratio Result Diagrams: 01/16/18 13:26 01/16/18 13:26 Imaging: Impressions Head MRA 01/14/18 00:00 CONCLUSION: 1. Occlusion of the right MCA again seen at its origin. 2. Prominent motion artifact. Head CT 01/14/18 18:18 CONCLUSION: 1. Evolving right MCA infarction with interval decrease in the amount of mass effect and hypodensity compared to 12/31/2017. 2. No new acute findings. Head MRI 01/14/18 21:26 CONCLUSION: Acute infarct in the right cerebral hemisphere periventricular white matter matching the hypodensity seen on recent head CT. No evidence of midline shift. Neck MRA 01/14/18 21:26 CONCLUSION: 1. MRA of the neck within normal limits. 2. Occlusion of the proximal right MCA again noted. Percent stenosis is calculated using the diameter of the stenotic region over the diameter of the normal distal internal carotid artery Assessment and Plan - Disease Oriented Problem List (1) CVA (cerebral vascular accident) Pertinent Non-Medical Issues: Psychosocial: The patient is retired and recently but remains in close communication with his . He was independent of all ADL's prior to his 1st stroke. He has 4 daughters though only 1 is involved in his care Spiritual: None, patient declined a meeting with the director of physical security at this time Legal: As per [place] statues, in the absence of any written advance directive decision making falls to the majority of the adult children should the patient become unable to participate in his own care [facility] 01/16/18 naming dtr Dianelys Steiner Ethical issues impacting care: There are no know ethical issues impacting Mr. Persaud's care at this time Important Contacts: Sincere Waldrop, [facility]/ daughter [phone] / [phone] Evelyn Martin, niece [phone] Wyatt Sanders, niece [phone] Prognosis: Given the fact that Mr. Persaud has had two major strokes in a relatively short amount of time, his recent decline in functional status (including aspiration concerns), lethargy and overall debility he is at an increased risk for mortality. Code Status: Full Code Plan: * LEGAL DECISION MAKER: The patient is able to participate in his health care at this time. He has indicated that he would want Dianelys (daughter) involved in his care, and to service decision-maker should he become incapacitated. Assisted him today to complete healthcare surrogate designation. Provided them with 2 copies, faxed to medical records. * GOALS: Patient and daughter understand he has had another significant stroke. Daughter appears to understand possible trajectory and prognosis. At this time they will pursue rehabilitation hopefully in [place]. I have reviewed hospice role and services should he experience continued complications or decline going forward. Daughter is open to ongoing discussions as clinical course evolves. DC is pending to SNF in [place] * CODE STATUS: FULL CODE, though daughter plans to discuss DNR status further with patient. * SYMPTOMS: Debility - The patient was currently undergoing physical therapy for previous stroke and it appeared to be going well. He is now unable to move his left lower and upper extremities when he could previously ambulate with a walker. Flat today days somewhat lethargic. benefit from continued PT/OT/ST. Dysphagia - patient is working with ST, currently on puree diet with thin liquids, per ST no symptoms of coughing or aspiration. pt indicated that he continues to cough after he eats. He also reported some recent weight loss and poor appetite. Continue with speech recommendations * Discussed with inspector health care facilities will continue to follow during hospital course as his condition evolves, to assist patient/family with understanding of medical conditions, weigh benefits/burdens of treatment options , for clarification of goals of treatment. Additionally will assist with any symptoms of palliative concern Time Spent Total Floor Time (mins): 35 (chart review, PE, lengthy d/w family, d/w nursing) Attestation Attestation: To help prompt me to consider important information that might be impacting today's encounter and assessment, information from prior notes written by myself or my colleagues may have been "brought forward" into today's note. My signature on this note, however, is an attestation that I personally performed the exam, history, and/or decision-making noted today, and, unless otherwise indicated, the interactions with patient, family, and staff as well as the review of records all occurred today. I also attest that the listed assessment and stated plan reflect my best clinical judgment today based on the combination of historical information, prior notes, and today's exam/ interactions. When time spent is documented, it refers only to time spent today by the signer, or if indicated, combined time spent today by collaborating physician/nurse practitioner.
--- NOTE | 2018-01-16 16:53 | P.PN ---
Subjective Interval history: states he is hungry Physical Exam Vital signs: Vital Signs 01/15/18 17:09 01/15/18 19:00 01/15/18 20:00 Temperature 98.4 F Pulse Rate 63 71 64 Respiratory Rate 16 Blood Pressure 136/64 Pulse Oximetry 01/15/18 21:00 01/15/18 22:00 01/15/18 23:00 Temperature 98.4 F Pulse Rate 63 65 75 Respiratory Rate 16 Blood Pressure 156/72 H Pulse Oximetry 96 01/16/18 00:00 01/16/18 01:00 01/16/18 02:00 Temperature Pulse Rate 67 72 68 Respiratory Rate Blood Pressure Pulse Oximetry 01/16/18 03:00 01/16/18 04:00 01/16/18 05:00 Temperature 98.0 F Pulse Rate 74 69 71 Respiratory Rate 16 Blood Pressure 157/73 H Pulse Oximetry 97 01/16/18 06:00 01/16/18 07:00 01/16/18 08:00 Temperature 98.3 F Pulse Rate 69 79 78 Respiratory Rate 16 Blood Pressure 151/86 H Pulse Oximetry 01/16/18 09:00 01/16/18 10:00 01/16/18 11:00 Temperature 98 F Pulse Rate 75 73 72 Respiratory Rate 16 Blood Pressure 152/72 H Pulse Oximetry 01/16/18 12:00 01/16/18 15:00 Temperature 98.7 F Pulse Rate 69 65 Respiratory Rate 16 Blood Pressure 142/69 H Pulse Oximetry 97 Intake & Output 01/15/18 01/16/18 01/16/18 18:59 06:59 18:59 Intake Total 1120 / 1120 1100 / 1100 Balance 1120 / 1120 1100 / 1100 Weight 54.5 kg Intake: IV 1000 / 1000 1000 / 1000 NS Inj 1,000 ML @ 70 mls/hr IV. 1000 / 1000 1000 / 1000 CONT .[id number] [facility] Rx#:[id number] Oral 120 / 120 100 / 100 Other: # Voids 3 2 # Incontinent Voids 2 Date of Last Bowel Movement 01/15/18 01/15/18 # Bowel Movements 1 Narrative: awake alert facial droop slurred left hemiparesis arm 0/5,leg 3/5 Results - Labs CBC & Chem 7: 01/16/18 13:26 01/16/18 13:26 Laboratory Results - last 24 hr 01/15/18 01/15/18 01/16/18 03:22 20:01 07:55 WBC RBC Hgb Hct MCV MCH MCHC RDW Plt Count MPV Sodium Potassium Chloride Carbon Dioxide Anion Gap BUN Creatinine Estimated GFR POC Glucose 84 90 Random Glucose Hemoglobin A1c 6.2 H Calcium 01/16/18 01/16/18 01/16/18 12:14 13:26 13:26 WBC 5.1 RBC 4.00 L Hgb 12.8 L Hct 38.4 L MCV 96.1 MCH 31.9 MCHC 33.2 RDW 13.0 Plt Count 135 L MPV 8.5 Sodium 139 Potassium 3.8 Chloride 105 Carbon Dioxide 26.1 Anion Gap 8 BUN 21 H Creatinine 0.74 Estimated GFR Greater than 89 POC Glucose 105 Random Glucose 145 H Hemoglobin A1c Calcium 8.3 L Assessment and Plan - Assessment (1) CVA (cerebral vascular accident) Code(s): I63.9 - Cerebral infarction, unspecified Status: Resolved - Plan diet per ST asa and plavix bp control rehab d/c planning.
--- NOTE | 2018-01-16 18:21 | CT ---
EXAM DATE: 01/16/2018 5:18 PM EDT AGE/SEX: 77 years / Male INDICATIONS: Intracerebral hemorrhage CLINICAL DATA: This is the patient's initial encounter. Patient reports that signs and symptoms have been present for 1 day and indicates a pain score of 0/10. MEDICAL/SURGICAL HISTORY: Cerebrovascular disease. Hypertension. None. RADIATION DOSE: 44.88 CTDI (mGy) COMPARISON: . TECHNIQUE: CT of the head without contrast. Using automated exposure control and adjustment of the mA and/or kV according to patient size, radiation dose was kept as low as reasonably achievable to ob tain optimal diagnostic quality images. DICOM format image data is available electronically for revi ew and comparison. FINDINGS: Cerebrum: Focal area of hypodensity in the right pro radiata at site of MCA infarction and mild h yperdensity in the right superior sylvian cortical ribbon is unchanged in appearance from prior exami nation. No evidence of mass effect. The ventricles are symmetric in size. No evidence of acute blood products or extra-axial fluid. Posterior Fossa: The cerebellum and brainstem are intact. The 4th ventricle is midline. The cerebe llopontine angle is unremarkable. Extracranial: The visualized portion of the orbits is intact. Skull: The calvaria is intact. No evidence of skull fracture. CONCLUSION: 1. Stable appearance to the right MCA infarction when compared to 01/14/2018. 2. No new findings. . Electronically signed by: Rick Downing MD 01/16/2018 6:20 PM EDT
[2018-01-17] MEDS: Sod Chloride 0.9% Inj 1,000 ML IV.CONT SCH ×2 (06:44→20:52)
--- NOTE | 2018-01-17 08:53 | P.DS ---
Date of admission: 01/14/18 20:55 Primary care physician: UNKNOWN Brief History from admission: 77-year-old male with a history of depression, hypertension, recent admission with left-sided weakness, right basal ganglia, insula, right temporal and parietal lobe infarct, treated medically and discharged to rehab on 12/31. Patient is sent in due to worsening of left-sided weakness worsening since 4 PM yesterday, and patient is no longer able to walk with assistance/walker. History is limited by patient with slurred speech. Denies any pain. Per the history obtained from chart review and discussion with ED physician. Family not at bedside at the time of my evaluation. Surgical history unknown Social history unknown. Family history unknown. DS: Medications - Discharge Medications Prescriptions: aspirin 81 mg PO DAILY #30 tab clopidogrel [Plavix] 75 mg PO DAILY #20 tab DS: Summary Hospital Course: Patient was admitted to intensive care. Found to have an extension of his original MCA infarction. Neurology had been consulted and recommended dual antiplatelet therapy for about a week's time before considering full anticoagulation. Patient's overall status otherwise remained stable. Palliative care has been consulted and with a joint decision the patient and the daughter elected for him to be a full code for now. Patient has met maximal benefit from hospitalization is clinically stable for discharge to a rehab facility. - Time Spent with Patient Total time spent providing and/or coordinating discharge services: Less than 30 minutes - Quality: VTE Deep Vein Thrombosis/Pulmonary Embolism Present on Admission: No Exam Vital signs: Vital Signs 01/16/18 09:00 01/16/18 10:00 01/16/18 11:00 Temperature 98 F Pulse Rate 75 73 72 Respiratory Rate 16 Blood Pressure 152/72 H Pulse Oximetry 01/16/18 12:00 01/16/18 13:00 01/16/18 14:00 Temperature Pulse Rate 69 72 70 Respiratory Rate Blood Pressure Pulse Oximetry 01/16/18 15:00 01/16/18 16:00 01/16/18 17:00 Temperature 98.7 F Pulse Rate 65 65 75 Respiratory Rate 16 Blood Pressure 142/69 H Pulse Oximetry 97 01/16/18 18:00 01/16/18 19:00 01/16/18 20:00 Temperature 98.2 F Pulse Rate 76 74 78 Respiratory Rate 20 Blood Pressure 143/65 H Pulse Oximetry 98 01/16/18 21:00 01/16/18 22:00 01/16/18 23:00 Temperature 98.1 F Pulse Rate 84 91 H 57 L Respiratory Rate 20 Blood Pressure 165/72 H Pulse Oximetry 97 01/17/18 00:00 01/17/18 01:00 01/17/18 02:00 Temperature Pulse Rate 82 84 82 Respiratory Rate Blood Pressure Pulse Oximetry 01/17/18 03:00 01/17/18 03:19 01/17/18 04:00 Temperature 98.1 F Pulse Rate 85 87 69 Respiratory Rate 18 Blood Pressure 162/77 H Pulse Oximetry 97 01/17/18 05:00 01/17/18 06:00 Temperature Pulse Rate 79 70 Respiratory Rate Blood Pressure Pulse Oximetry Intake & Output 01/16/18 01/17/18 01/17/18 18:59 06:59 18:59 Intake Total 480 / 480 1640 / 1640 Output Total 3 / 3 Balance 477 / 477 1640 / 1640 Weight 55 kg Intake: IV 1400 / 1400 NS Inj 1,000 ML @ 70 mls/hr IV. 1400 / 1400 CONT .[id number] [facility] Rx#:[id number] Oral 480 / 480 240 / 240 Output: Stool 3 / 3 Other: # Incontinent Voids 2 # Urine Diapers 2 Date of Last Bowel Movement 01/16/18 01/16/18 Narrative: 4/5 right fist art psychotherapist strength 0/left fist art psychotherapist strength Lying in bed, Results Procedures completed during hospitalization: . Labs on day of discharge: Labs from last 24 hours 01/17/18 01/16/18 01/16/18 07:57 21:01 17:30 WBC RBC Hgb Hct MCV MCH MCHC RDW Plt Count MPV Sodium Potassium Chloride Carbon Dioxide Anion Gap BUN Creatinine Estimated GFR POC Glucose 90 110 87 Random Glucose Calcium 01/16/18 01/16/18 01/16/18 13:26 13:26 12:14 WBC 5.1 RBC 4.00 L Hgb 12.8 L Hct 38.4 L MCV 96.1 MCH 31.9 MCHC 33.2 RDW 13.0 Plt Count 135 L MPV 8.5 Sodium 139 Potassium 3.8 Chloride 105 Carbon Dioxide 26.1 Anion Gap 8 BUN 21 H Creatinine 0.74 Estimated GFR Greater than 89 POC Glucose 105 Random Glucose 145 H Calcium 8.3 L - Impressions ITS Impressions Head MRA 01/14/18 00:00 CONCLUSION: 1. Occlusion of the right MCA again seen at its origin. 2. Prominent motion artifact. Head MRI 01/14/18 21:26 CONCLUSION: Acute infarct in the right cerebral hemisphere periventricular white matter matching the hypodensity seen on recent head CT. No evidence of midline shift. Neck MRA 01/14/18 21:26 CONCLUSION: 1. MRA of the neck within normal limits. 2. Occlusion of the proximal right MCA again noted. Percent stenosis is calculated using the diameter of the stenotic region over the diameter of the normal distal internal carotid artery Head CT 01/16/18 00:00 CONCLUSION: 1. Stable appearance to the right MCA infarction when compared to 01/14/2018. 2. No new findings. . Discharge Plan - Discharge Disposition Patient Disposition: 03 Discharge to SNF - Discharge Condition Condition: Stable - Discharge Order Discharge Orders: Discharge Order (Routine); Ordered 01/16/18 Ordered By: Jama Disla - Physicians Team Primary Care Provider: UNKNOWN, Attending Provider: Aram Mireles Other Providers: Gabriela Sher MD ; Lilo Díaz MD ; Jaqueline Parsons ; Elizabeth Ramirez MD ; [facility]
[2018-01-17] MEDS: Heparin - SQ 10,000 UNITS/ML Vial SQ SCH ×2 (09:38→20:30)
[2018-01-17] MEDS: Citalopram 20 MG Tablet PO SCH (09:38)
[2018-01-17] MEDS: amLODIPine 5 MG Tablet PO SCH (09:39)
[2018-01-17] MEDS: Lisinopril 20 MG Tablet PO SCH (09:40)
--- NOTE | 2018-01-17 10:17 | P.PN ---
Subjective Interval history: Nursing denies any deterioration since last night except for mildly elevated blood pressures. Daughter at the bedside. Physical Exam Vital signs: Vital Signs 01/16/18 11:00 01/16/18 12:00 01/16/18 13:00 Temperature 98 F Pulse Rate 72 69 72 Respiratory Rate 16 Blood Pressure 152/72 H Pulse Oximetry 01/16/18 14:00 01/16/18 15:00 01/16/18 16:00 Temperature 98.7 F Pulse Rate 70 65 65 Respiratory Rate 16 Blood Pressure 142/69 H Pulse Oximetry 97 01/16/18 17:00 01/16/18 18:00 01/16/18 19:00 Temperature 98.2 F Pulse Rate 75 76 74 Respiratory Rate 20 Blood Pressure 143/65 H Pulse Oximetry 98 01/16/18 20:00 01/16/18 21:00 01/16/18 22:00 Temperature Pulse Rate 78 84 91 H Respiratory Rate Blood Pressure Pulse Oximetry 01/16/18 23:00 01/17/18 00:00 01/17/18 01:00 Temperature 98.1 F Pulse Rate 57 L 82 84 Respiratory Rate 20 Blood Pressure 165/72 H Pulse Oximetry 97 01/17/18 02:00 01/17/18 03:00 01/17/18 03:19 Temperature 98.1 F Pulse Rate 82 85 87 Respiratory Rate 18 Blood Pressure 162/77 H Pulse Oximetry 97 01/17/18 04:00 01/17/18 05:00 01/17/18 06:00 Temperature Pulse Rate 69 79 70 Respiratory Rate Blood Pressure Pulse Oximetry Intake & Output 01/16/18 01/17/18 01/17/18 18:59 06:59 18:59 Intake Total 480 / 480 1640 / 1640 Output Total 3 / 3 Balance 477 / 477 1640 / 1640 Weight 55 kg Intake: IV 1400 / 1400 NS Inj 1,000 ML @ 70 mls/hr IV. 1400 / 1400 CONT .[id number] [facility] Rx#:[id number] Oral 480 / 480 240 / 240 Output: Stool 3 / 3 Other: # Incontinent Voids 2 # Urine Diapers 2 Date of Last Bowel Movement 01/16/18 01/16/18 Narrative: 4/5 right fist inspector plating strength 0/left fist inspector plating strength Lying in bed, sleeping, easily awoken Results - Labs CBC & Chem 7: 01/16/18 13:26 01/16/18 13:26 Laboratory Results - last 24 hr 01/16/18 01/16/18 01/16/18 12:14 13:26 13:26 WBC 5.1 RBC 4.00 L Hgb 12.8 L Hct 38.4 L MCV 96.1 MCH 31.9 MCHC 33.2 RDW 13.0 Plt Count 135 L MPV 8.5 Sodium 139 Potassium 3.8 Chloride 105 Carbon Dioxide 26.1 Anion Gap 8 BUN 21 H Creatinine 0.74 Estimated GFR Greater than 89 POC Glucose 105 Random Glucose 145 H Calcium 8.3 L 01/16/18 01/16/18 01/17/18 17:30 21:01 07:57 WBC RBC Hgb Hct MCV MCH MCHC RDW Plt Count MPV Sodium Potassium Chloride Carbon Dioxide Anion Gap BUN Creatinine Estimated GFR POC Glucose 87 110 90 Random Glucose Calcium - Imaging Impressions Head CT 01/16/18 00:00 CONCLUSION: 1. Stable appearance to the right MCA infarction when compared to 01/14/2018. 2. No new findings. . Assessment and Plan - Plan 77-year-old white male admitted for worsening strokelike symptoms with left- sided weakness. 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 Symptoms worsened and presented to the hospital for admission with new acute infarction extension. Repeat CT head shows no hemorrhagic conversion or new acute findings otherwise. Right MCA extended infarction On aspirin and Plavix and Lipitor. Will need to be transition to full anticoagulation within about a week's time. Family and patient have opted for full code at this time. Discharge pending placement.
[2018-01-18] MEDS: Lisinopril 20 MG Tablet PO SCH (09:41)
[2018-01-18] MEDS: amLODIPine 5 MG Tablet PO SCH (09:41)
[2018-01-18] MEDS: Citalopram 20 MG Tablet PO SCH (09:41)
[2018-01-18] MEDS: Heparin - SQ 10,000 UNITS/ML Vial SQ SCH ×2 (09:42→21:54)
[2018-01-18] MEDS: Sod Chloride 0.9% Inj 1,000 ML IV.CONT SCH (10:24)
--- NOTE | 2018-01-18 15:33 | P.DIET ---
Nutritional Evaluation Type of nutrition evaluation: initial Nutrition consult regarding: Diet Evaluation [place] [facility] [place]: [place] [facility] [place] Intake; PT REFUSES TO EAT Subjective Oral Diet Tolerance Assessment Indicates: Swallowing problems Subjective Comments: Pt sleeping in bedside chair when visited. Pt woke to provide one word answers to questions. Lunch tray on bedside table w/approx. 25% po intake Objective - Diagnosis Left sided weakness - Objective [place] body weight: 72.7 kg % IBW: 78 Body Weight Used for Calculations: Actual (56.5kg) Energy Needs - Lower Range (kCal/kg): 35 Energy Needs - Upper Range (kCal/kg): 40 Lower Limit kCal/kg (kCals): 1,978 Upper Limit kCal/kg (kCals): 2,260 Lower Limit Protein Factor (Grams per Kg): 1.2 Upper Limit Protein Factor (Grams per Kg): 1.5 Lower Protein Needs (Protein): 68 Upper Protein Needs (Protein): 85 Dietitian Reviewed in Medical Record: Current diet, Curent medications, Intake & Output, Labs, Medical history Diet Order: Cardiac Pureed thin liquid Oral Diet Intake Amount: Poor <50% Speech Therapy Recommendations: Yes (pureed thin liquids) Objective Comments: PMH Includes: BPH, Constipation, CVA, Depression, HLD, HTN Meds Include: Norvasc, Lipitor,Celexa, Plavix, Lisinopril LBM 01/16 Assessment Assessment: Pt is at nutritional risk r/t poor po intake and dysphagia w/need for a pureed diet. Pt w/a low BMI 18.4. Inadequate PO Intake less than 50% and also refusing some meal trays. Send Ensure Enlive TID(= 350 kcal and 20g Protein per serving) . Send Ensure Pudding TID( 170 kcal and 4g Protein per serving). Pt provided a few food preferences during this visit. Consider an appetite stimulant if medically appropriate. Labs reviewed. Dietitian following. Recommendations: 1. Send Ensure Enlive TID 2. Send Ensure Pudding TID 3. [place] Food preferences 4. Consider an appetite stimulant if medically appropriate 5. Dietitian following Dietitian to Monitor: Lab values, Supplement acceptance, Intake & Output, Diet tolerance, Weight change, PO Intake, Swallow recommendations, Medical course
[2018-01-18 16:21] LABS: Anion Gap 8 meq/L (5-15); Blood Urea Nitrogen 15 mg/dL (7-18); Calcium 8.3 mg/dL (8.5-10.1); Carbon Dioxide 23.9 meq/L (21.0-32.0); Chloride 107 meq/L (98-107); Glomerular Filtration Rate Greater Than 89 mL/min (>89); Glucose,Random 104 mg/dL (74-106); Potassium 3.9 meq/L (3.5-5.1); Sodium 139 meq/L (136-145)
--- NOTE | 2018-01-18 16:28 | ECG ---
Date Performed: 01/18/2018 Time Performed: 13:28:26 PTAGE: 77 years EKG: Sinus rhythm with PAC(s) Borderline ECG Compared to prior electrocardiogram, Premature atrial contractions are pr esent. DOCTOR: Aram Coreas Interpretating Date/Time 01/18/2018 16:26:27
--- NOTE | 2018-01-18 19:01 | P.PNADD ---
Addendum to Inpatient Note Reason for Addendum: Additional Documentation Additional information: RN reported some PVCs. Independently reviewed strips as well as new EKG, sinus arhythmia and some PVCs. most recent echo from 2-3 wks ago unremarkable. electrolytes stable. pt asymptomatic. lying in bed. unlabored breathing. NAD. no further workup. pending placement.
[2018-01-19] MEDS: Sod Chloride 0.9% Inj 1,000 ML IV.CONT SCH ×2 (00:10→00:46)
[2018-01-19] MEDS: amLODIPine 5 MG Tablet PO SCH (09:30)
[2018-01-19] MEDS: Citalopram 20 MG Tablet PO SCH (09:30)
[2018-01-19] MEDS: Heparin - SQ 10,000 UNITS/ML Vial SQ SCH (09:30)
[2018-01-19] MEDS: Lisinopril 20 MG Tablet PO SCH (09:30)
--- NOTE | 2018-01-19 14:23 | P.PNIM ---
Subjective Interval history: 77-year-old male admitted for right MCA CVA and left-sided weakness. He was discharged yesterday but discharge held due to progression of symptoms. There is no specific therapy in his progression of symptoms has subsided currently. Physical Exam Vital signs: Vital Signs 01/18/18 15:00 01/18/18 16:00 01/18/18 17:00 Temperature 98.1 F Pulse Rate 81 113 H 79 Respiratory Rate 14 Blood Pressure 145/62 H Pulse Oximetry 98 01/18/18 18:00 01/18/18 19:00 01/18/18 20:00 Temperature 98.1 F Pulse Rate 73 78 98 H Respiratory Rate 18 Blood Pressure 145/83 H Pulse Oximetry 98 01/18/18 21:00 01/18/18 22:00 01/18/18 23:00 Temperature 98.2 F Pulse Rate 98 H 88 83 Respiratory Rate 15 Blood Pressure 149/76 H Pulse Oximetry 98 01/19/18 00:00 01/19/18 01:00 01/19/18 02:00 Temperature Pulse Rate 86 70 93 H Respiratory Rate Blood Pressure Pulse Oximetry 01/19/18 03:00 01/19/18 04:00 01/19/18 05:00 Temperature 98.3 F Pulse Rate 78 74 76 Respiratory Rate 16 Blood Pressure 126/70 Pulse Oximetry 97 01/19/18 06:00 01/19/18 07:00 01/19/18 07:50 Temperature 98.5 F Pulse Rate 88 78 79 Respiratory Rate 16 Blood Pressure 122/58 L Pulse Oximetry 97 01/19/18 08:00 01/19/18 09:00 01/19/18 10:00 Temperature Pulse Rate 76 76 82 Respiratory Rate Blood Pressure Pulse Oximetry 01/19/18 11:00 01/19/18 11:58 01/19/18 12:00 Temperature 98.5 F Pulse Rate 91 H 89 106 H Respiratory Rate 16 Blood Pressure 102/57 L Pulse Oximetry 96 01/19/18 13:00 Temperature Pulse Rate 104 H Respiratory Rate Blood Pressure Pulse Oximetry Intake & Output 01/18/18 01/19/18 01/19/18 18:59 06:59 18:59 Intake Total 1600 / 1600 1050 / 1050 Output Total 200 / 200 Balance 1400 / 1400 1050 / 1050 Weight 59 kg Intake: IV 1000 / 1000 1000 / 1000 NS Inj 1,000 ML @ 70 mls/hr IV. 1000 / 1000 1000 / 1000 CONT .[id number] [facility] Rx#:[id number] Oral 600 / 600 50 / 50 Output: Urine 200 / 200 Other: # Incontinent Voids 1 2 Date of Last Bowel Movement 01/16/18 01/19/18 # Incontinent Bowel Movements 2 Narrative: GENERAL: AAOx3, no acute distress SKIN: Warm and dry. No rashes HEAD: Atruamtic, normocephalic. EYES: No scleral icterus. No injection or drainage. ENT: Moist mucous membranes, patent nares, no erythema of oropharynx. NECK: Supple, trachea midline. No JVD or lymphadenopathy. Normal thyroid. CARDIOVASCULAR: Regular rate and rhythm. No murmurs, gallops, or rubs. RESPIRATORY: Breath sounds clear equal bilaterally. No crackles or wheezes. No accessory muscle use. GASTROINTESTINAL: Abdomen soft, non-tender, nondistended, normal active bowel sounds MUSCULOSKELETAL: No cyanosis, or edema. NEURO: CN II-XII grossly intact, left-sided weakness following right MCA CVA Results - Labs CBC & Chem 7: 01/16/18 13:26 01/18/18 15:36 Laboratory Results - last 24 hr 01/18/18 01/18/18 01/18/18 15:36 17:21 21:18 Sodium 139 Potassium 3.9 Chloride 107 Carbon Dioxide 23.9 Anion Gap 8 BUN 15 Creatinine 0.71 Estimated GFR Greater than 89 POC Glucose 92 172 H Random Glucose 104 Calcium 8.3 L Magnesium 2.0 01/19/18 01/19/18 08:02 12:10 Sodium Potassium Chloride Carbon Dioxide Anion Gap BUN Creatinine Estimated GFR POC Glucose 88 148 H Random Glucose Calcium Magnesium Assessment and Plan - Plan 77-year-old white male admitted for worsening strokelike symptoms with left- sided weakness. Recently worsened and admitted for progression of symptoms. Repeat CT head shows no hemorrhagic conversion or new acute findings otherwise. Right MCA extended infarction CT of head shows no hemorrhagic conversion and no acute findings other than stable stroke. Patient will need to be transitioned to full anticoagulation within 1 week Continue aspirin and Plavix and Lipitor. Discharge planning Patient is awaiting discharge to rehab center, discharge orders placed yesterday
[2018-01-19 15:07] VITALS: TEMP 98.6
--- NOTE | 2018-01-19 15:12 | P.PNADD ---
Addendum to Inpatient Note Reason for Addendum: Additional Documentation Additional information: 77-year-old male, discharged yesterday. He slid off the chair onto the floor approximately 30 minutes ago. Rapid response team found nothing wrong with him. On my evaluation he has no points of bony tenderness and requires no x- rays at this time. Exam of all major joints and common sites of fracture were negative. Okay to still send to rehab today.
[2018-01-19 16:11] VITALS: BP 113/53; PULSE 88; RESP 18; O2SAT 99
== END 2018-01-19 16:05 ==
LOC: NEPC 17:53 → NEDA 20:55 → HCPC 22:56
PROVIDERS: ADMIT Family Medicine; ATTEND Family Medicine